=== PATIENT | female | born 1950 | race Caucasian/White ===

== ENCOUNTER 2024-07-02 11:25 | Inpatient (IN) | payer MEDICARE, BC, SELFPAY ==
[2024-07-02] VITALS (8 sets, daily range): BP systolic 108–125; BP diastolic 55–75; PULSE 59–74; RESP 14–16; TEMP 36.6–36.9; O2SAT 99–100; BMI 22.8
--- NOTE | ~2024-07-02 | XR_ITS ---
EXAMINATION: XR CHEST CLINICAL INFORMATION: Chest pressure, palpitations COMPARISON: None available. TECHNIQUE: 2 views of the chest were obtained. FINDINGS: The lungs are well-expanded. No focal consolidation. No pleural effusions or pneumothorax. The cardiac mediastinal silhouette is within normal limits. No acute osseous abnormality. Degenerative changes of the thoracic spine. XR/XR chest 2V IMPRESSION: No acute pulmonary disease.
--- NOTE | ~2024-07-02 | NM_ITS ---
EXERCISE MYOCARDIAL PERFUSION STUDY INDICATION: Chest pain TECHNIQUE: The patient was brought in for an exercise perfusion study on 07/04/2024. Patient performed exercise as per Marcus protocol and was injected 25 mCi of sestamibi once target heart rate was achieved. Images were obtained using the SPECT gamma camera interlaced with the gating device. Images were obtained in supine position. Resting perfusion study was performed on 07/03/2024. Patient was administered 25 mCi of sestamibi intravenously at rest. Images were then obtained in supine position. Images were processed with the software and compared side to side in short axis, horizontal long axis and vertical long axis views. Total DLP 60mGy-cm. FINDINGS: Raw images were reviewed. The stress perfusion study showed no significant perfusion abnormality. Both uncorrected as well as CT attenuation corrected images were reviewed. The gated study shows normal LV systolic function with calculated LVEF of 72%. LV cavity is normal in size. The gated study shows normal wall thickening and contraction of segments. Resting study shows no significant perfusion abnormality. Gating at rest reveals normal wall motion with ejection fraction at 60%. The findings are consistent with no clear reversible or fixed perfusion abnormality. NM/NM armida perf SPECT rest & str IMPRESSION: 1. Myocardial perfusion imaging study shows normal myocardial perfusion. 2. Gated LVEF is 72% during stress and 60% during rest. 3. Transient ischemic dilatation not present. EKG component of the test reported separately.
--- NOTE | 2024-07-02 11:29 | ECG_ITS ---
Test Reason : CP Blood Pressure : / mmHG Vent. Rate : 068 BPM Atrial Rate : 068 BPM P-R Int : 156 ms QRS Dur : 094 ms QT Int : 364 ms P-R-T Axes : 060 -12 034 degrees QTc Int : 387 ms Normal sinus rhythm Normal ECG No previous ECGs available Referred By: Daphnie Sam Electronically Signed By:GAIL BORGES
--- NOTE | 2024-07-02 11:51 | ED_ITS ---
HPI - Chest Pain General Chief Complaint: Chest Pain Stated Complaint: Chest palpitations, fatigued Time Seen by Provider: 07/02/24 11:29 Source: patient and RN notes reviewed Mode of arrival: ambulatory Limitations: no limitations History of Present Illness ED Provider: Daphnie Sam PA-C HPI narrative: This is a 74-year-old female, with a history of hyperlipidemia, hypertension, and thyroid disease on Synthroid, who presents emergency department with complaints of palpitations, fatigue, and chest pain. Patient states that she has had intermittent palpitations, and chest pressure over the last 5-6 months which typically occurred when she was active, which she attributed to deconditioning. She states that over the last day she has felt increased symptoms including chest pressure, and palpitations. She states that yesterday she as though she was having indigestion and gas so she took gavaston. States that her symptoms have been more consistent today. States that the chest pressure, palpitations, and SOB have worsened today, states that she was walking at a slight incline to a neighbors this afternoon. She states that she was endorsing some palpitations and chest pressure on with only walking short distances. She states that she also gets palpitations and chest pressure when she is walking upstairs. She denies any recent travel, surgeries, hospitalizations. MD complaint: chest pain Onset (ago): month(s) Timing of current episode: episodic Prior episodes: Yes Onset: during exertion Pain location: substernal, left chest and right chest Pain radiation: none Severity: moderate Quality: heaviness Relieving factors: rest Exacerbating factors: exertion Associated symptoms: dyspnea and palpitations Treatment prior to arrival: none Risk Factors Coronary artery disease risk factors: hyperlipidemia and hypertension Related Data On Oral Contraceptives: No Allergies Allergy/AdvReac Type Severity Reaction Status Date / Time No Known Allergies Allergy Verified 07/02/24 11:49 Review of Systems 2 Review of Systems: Yes all other systems are reviewed and are negative Constitutional: Constitutional: Reports as per [facility] Social History Social History Smoked in Last 30 Days: No Use of substances other than those prescribed or required for medical reasons: No Advance Directives: No Advance Directives Information Provided: Yes Do you have a plan to hurt others: No Plan Physical Exam 2 Vital Signs: Vital Signs: Last Vital Signs Temp 97.8 F 07/02/24 11:36 Pulse 59 07/02/24 16:00 Resp 16 07/02/24 16:00 BP 114/64 07/02/24 16:00 Pulse Ox 99 07/02/24 16:00 O2 Del Method Room Air 07/02/24 16:00 BMI result Body Mass Index 22.8 Const: General: cooperative, comfortable and no acute distress O rientation/consciousness: patient oriented x3 Limitations: no limitations HEENT: Head: Yes normal to inspection, Yes normocephalic and Yes atraumatic Ears: hearing grossly normal bilaterally General nose exam: Normal external nose present Face and sinus: Yes normal facial exam Mouth: Normal oral and palatal mucosa present, oropharynx normal and moist mucous membranes Throat: Yes posterior oropharynx normal Eyes: General: appearance normal, both eyes and all related structures E yelids: Yes eyelids normal Conjunctivae: conjunctivae normal Sclerae: s clerae normal Pupils: Equal, round and reactive pupils present EOM: EOMs intact bilaterally Neck: Neck: Yes normal visual inspection, Yes full ROM and Yes no lymphadenopathy Lymphatic: no lymphadenopathy noted Chest: Chest palpation & inspection: normal inspection of the chest Resp: Effort & Inspection: normal respiratory effort and able to speak in complete sentences Auscultation: clear to auscultation bilaterally, no crackles, no rales, no rhonchi and no wheezes Cardio: Rate: regular rate Rhythm: regular rhythm Heart sounds: S1 normal heart sound present and S2 normal heart sound present GI: Inspection: Yes normal to inspection Skin: General skin exam: no rashes or lesions noted Trauma: no lacerations or abrasions Wounds: no wounds Neuro: General: patient oriented x3 and moves all extremities Cranial nerves: Yes Equal, round and reactive pupils present Extrem: Other: No pitting edema noted bilaterally, no calf tenderness. General: Yes normal to inspection Right upper extremity: normal to inspection Left upper extremity: normal to inspection Right lower extremity: normal to inspection Left lower extremity: normal to inspection Course Reevaluation(s) Reevaluation #1: Second troponin returns, flat. Labs, EKG, chest x-ray, all normal. Given concerning story, heart score of 4, and he has renal equivalent type symptoms, I discussed case with Dr. Stahl. Dr. Stahl agrees that she would benefit from admit obs, patient is agreeable for this workup. Discussed case with hospitalist, Dr. Ramírez. Time: 17:19 Medical Decision Making Medical Decision Making [facility] Narrative: This is a 74-year-old female, with a history of thyroid disease, hypertension, and hyperlipidemia, who presents emergency department with palpitations, chest pressure and fatigue. She is currently asymptomatic at this time. She states that she has had ongoing symptoms for the last 5-6 months which she attributed to deconditioning. She states that her symptoms have been more consistent over the last 24 hours. She also endorses some shortness for breath after exertion. On arrival, patient is alert and oriented x4, vital signs within normal limits. No pitting edema noted bilaterally. Differential diagnoses include ACS, electrolyte derangement, thyroid storm, orthostatic hypotension, CHF - unlikely, pneumonia. Plan: Labs, EKG, chest x-ray, viral swabs Differential Diagnosis Differential Diagnoses: The differential diagnosis associated with the presentation includes See above Admission/Observation Consideration of admission/observation: Escalation of care including admission/observation considered Consult Healthcare Provider Management of the patient was discussed with: Hospitalist and Classification Inspector Dr. Favio Ramírez Lab Data [facility] Lab Attestation statement: I reviewed the patient's lab results. No leukocytosis, stable H&H, TSH within normal limits. Troponin flat. Urine does not appear to be infected. Viral swabs negative. 07/02/24 11:58 07/02/24 11:58 Labs: Lab Results 07/02/24 07/02/24 07/02/24 Range/Units 11:58 13:54 16:08 WBC 4.3 L (4.8-10.8) X10*3/uL RBC 3.68 L (4.20-5.50) X10*6/uL Hgb 12.5 (12.0-16.0) g/dl Hct 35.6 L (37.0-47.0) % MCV 96.7 (80.0-98.0) fL MCH 34.0 H (27.0-33.0) pg MCHC 35.1 H (31.0-35.0) g/dl RDW 12.3 (11.0-16.0) % Plt Count 251 (160-400) X10*3/uL MPV 10.3 (9.4-12.3) fL Immature Gran % (Auto) 0.2 (0.0-0.4) % Neut % (Auto) 62.9 (45-73) % Lymph % (Auto) 20.2 (20-40) % [place] % (Auto) 14.2 H (2-11) % Eos % (Auto) 1.6 (0-4) % Baso % (Auto) 0.9 (0-2) % Lymph # (Auto) 0.9 L (1.2-4.9) X10*3/uL [place] # (Auto) 0.6 (0.1-1.2) X10*3/uL Eos # (Auto) 0.1 (0.0-0.4) X10*3/uL Baso # (Auto) 0.0 (0.0-0.2) X10*3/uL Abs Immat Gran (auto) 0.01 (0.00-0.03) X10*3/uL Absolute Neuts (auto) 2.7 (2.0-8.3) x10*3/uL Absolute Nucleated RBC 0.000 (0.0-0.012) X10*3/uL Nucleated RBC % (auto) 0.0 (0.0-0.2) /100WBC PT 11.9 (11.1-13.3) SEC INR 1.0 (0.9-1.1) D-Dimer High Sensitivty 165 NG/ML Sodium 131 L (135-145) mmol/L Potassium 3.9 (3.3-5.1) mmol/L Chloride 97 (96-108) mmol/L Carbon Dioxide 26 (22-29) mmol/L Anion Gap 12 (12-20) BUN 14 (9-16) mg/dL Creatinine 0.83 (0.5-1.4) mg/dL Estim Creat Clear Calc 58.7 Estimated GFR > 60 Random Glucose 96 (60-115) mg/dL Calcium 9.5 (8.4-10.2) mg/dL Magnesium 2.0 (1.6-2.6) mg/dL Total Bilirubin 0.4 (0.0-1.0) mg/dL Direct Bilirubin 0.2 (0.0-0.5) mg/dL AST 30 (5-31) U/L ALT 23 (0-31) U/L Alkaline Phosphatase 54 (39-117) U/L Troponin I High Sens 4.2 4.9 (<3.5-17.0) ng/L B-Natriuretic Peptide 107 H (<100) pg/mL Total Protein 6.9 (6.5-8.0) g/dL Albumin 4.3 (3.5-5.0) g/dL TSH 0.79 (0.32-4.0) uIU/mL Urine Color Yellow Urine Appearance Clear Urine pH 7.0 (5.0-9.0) Ur Specific [place] <= 1.005 (1.005-1.025) Urine Protein Negative (Neg-Trace) mg/dL Urine Glucose (UA) Negative (Negative) mg/dL Urine Ketones Negative (Negative) mg/dL Urine Blood Trace H (Negative) Urine Nitrite Negative (Negative) Ur Leukocyte Esterase Negative (Negative) Urine RBC 3-5 H (0-2) /HPF Urine WBC 0-5 (0-5) /HPF Ur Squamous Epith Cells 0-2 (0-2) /HPF Urine Bacteria None Seen (None Seen) Hyaline Casts 0-2 (0-2) /LPF Ethyl Alcohol < 10 mg/dL Influenza Type A (PCR) NEGATIVE (Negative) Influenza Type B (PCR) NEGATIVE (Negative) RSV RNA Qual (PCR) NEGATIVE (Negative) SARS-CoV-2 RNA (RT-PCR) NEGATIVE (Negative) Independent Interpretation I performed an independent interpretation of an: EKG Interpretation: EKG normal sinus rhythm at a ventricular rate of 60 beats per minute, IN interval 156, QT QTC 364/387. No ST elevation or depression Radiology Impression Discussion of test interpretation with radiology: I have reviewed the radiologist's reading. Radiologist Impression: XR/XR chest 2V IMPRESSION: No acute pulmonary disease. Dictated By: Scotty Oglesby Independent Historian Clinical information obtained from an independent historian. History obtained from or confirmed by: Spouse Scores Heart Score History: -1- moderately suspicious ECG: -0- normal Age: -2- > or = 65 Risk factory: -1- 1 or 2 risk factors Troponin: -0- < or = normal limit Score: 4 Risk: 16.6% Critical Care Time Critical Care Time Critical Care Time: Yes Total Critical Care Time: 35 Attestation: I have personally provided critical care time exclusive of time spent on separately billable procedures. Time includes review of lab data, radiology results, discussion with consultants, and monitoring for potential decompensation. Intervention performed as documented. Discharge Plan Discharge Clinical Impression: Palpitations, Anginal equivalent Print Language: [place]
[2024-07-02 12:05] LABS: MANUAL DIFF FLAG NO
[2024-07-02 12:26] LABS: Prothrombin Time 11.9 SEC (11.1-13.3)
[2024-07-02 12:28] LABS: B Type Natriuretic Peptide 107 pg/mL (<100); Troponin-I High Sensitivity 4.2 ng/L (<3.5-17.0)
[2024-07-02 12:36] LABS: Alanine Aminotransferase 23 U/L (0-31); Albumin Level 4.3 g/dL (3.5-5.0); Alkaline Phosphatase 54 U/L (39-117); Anion Gap 12 (12-20); Aspartate Amino Transferase 30 U/L (5-31); Bilirubin Direct 0.2 mg/dL (0.0-0.5); Bilirubin Total 0.4 mg/dL (0.0-1.0); Blood Urea Nitrogen 14 mg/dL (9-16); Calcium 9.5 mg/dL (8.4-10.2); Carbon Dioxide 26 mmol/L (22-29); Chloride 97 mmol/L (96-108); Creatinine Clr Calc Pharmacy 58.7; Estimated Glomerular Filt Rate > 60; Ethanol < 10 mg/dL; Glucose Random 96 mg/dL (60-115); Potassium 3.9 mmol/L (3.3-5.1); Sodium 131 mmol/L (135-145); Total Protein 6.9 g/dL (6.5-8.0)
[2024-07-02 12:45] LABS: TSH reflex Free T4 0.79 uIU/mL (0.32-4.0)
[2024-07-02 12:49] LABS: Influenza A PCR NEGATIVE (Negative); Influenza B PCR NEGATIVE (Negative); Resp Syncy Virus RNA Qual PCR NEGATIVE (Negative); SARS COV2 PCR INHOUSE NEGATIVE (Negative)
[2024-07-02 13:27] LABS: Basophils Percent Auto 0.9 % (0-2); Eosinophils Absolute Auto 0.1 X10*3/uL (0.0-0.4); Eosinophils Percent Auto 1.6 % (0-4); Hematocrit 35.6 % (37.0-47.0); Hemoglobin 12.5 g/dl (12.0-16.0); Imm Gran Abs Auto 0.01 X10*3/uL (0.00-0.03); Imm Gran Pct Auto 0.2 % (0.0-0.4); Lymphocytes Absolute Auto 0.9 X10*3/uL (1.2-4.9); Lymphocytes Percent Auto 20.2 % (20-40); Mean Corpuscular HGB Conc 35.1 g/dl (31.0-35.0); Mean Corpuscular Volume 96.7 fL (80.0-98.0); Mean Platelet Volume 10.3 fL (9.4-12.3); Monocytes Absolute Auto 0.6 X10*3/uL (0.1-1.2); Monocytes Percent Auto 14.2 % (2-11); Neutrophils Absolute Auto 2.7 x10*3/uL (2.0-8.3); Neutrophils Percent Auto 62.9 % (45-73); Platelet Count 251 X10*3/uL (160-400); Red Blood Count 3.68 X10*6/uL (4.20-5.50); Red Cell Distribution Width 12.3 % (11.0-16.0); White Blood Count 4.3 X10*3/uL (4.8-10.8)
[2024-07-02 13:55] LABS: D Dimer High Sensitivity 165 NG/ML
[2024-07-02 14:01] LABS: Appearance Urine Clear; Color Urine Yellow; Glucose Urine UA Negative (Negative); Leukocyte Esterase Urine Negative (Negative); Nitrite Urine Negative (Negative); Specific Gravity - Urine <= 1.005 (1.005-1.025); UMIC TRIGGER UACC YES; Urine Blood Trace (Negative); Urine Ketones Negative (Negative); Urine Protein Negative (Neg-Trace)
[2024-07-02 14:05] LABS: Bacteria Urine None Seen (None Seen); Hyaline Casts Urine 0-2 /LPF (0-2); Squamous Epithelial Cell Urine 0-2 /HPF (0-2); WBC Urine 0-5 /HPF (0-5)
[2024-07-02 16:43] LABS: Troponin-I High Sensitivity 4.9 ng/L (<3.5-17.0)
--- NOTE | 2024-07-02 17:43 | P.HPHOSP_ITS ---
History of Present Illness Date of Service: 07/02/24 Chief Complaint: palpitations 74F PMH htn, hld, hypothyroid, presented with palpitations. Patient states that symptoms began day prior to presentation. On moderate exertion such as hiking on outside trail she started to feel chest heaviness with palpitations. Relieved by rest. On day of presentation, symptoms started with only mild exertion. Patient took her orthostatic vitals and found them to be positive. Orthostatics in ER were negative. Troponins were negative. EKG was unremarkable. Case discussed with Cardiology recommended observation for stress test. Review of Systems 2 Review of Systems: Yes all other systems are reviewed and are negative [facility] Medical History (Updated 07/02/24 @ 17:44 by Wild Ramírez MD) Adult onset hypothyroidism Social History Smoked in Last 30 Days: No Use of substances other than those prescribed or required for medical reasons: No Advance Directives: No Advance Directives Information Provided: Yes Do you have a plan to hurt others: No Plan Meds Allergies Allergy/AdvReac Type Severity Reaction Status Date / Time No Known Allergies Allergy Verified 07/02/24 11:49 Home Medications ?Medication ?Instructions ?Recorded ?Confirmed ?Last Taken ?Type acetaminophen 500 mg tablet 500 mg PO BID 07/02/24 07/02/24 07/01/24 History (Tylenol Extra Strength) acetaminophen 500 mg tablet 500 mg PO DAILY PRN Pain 07/02/24 07/02/24 Unknown History (Tylenol Extra Strength) atorvastatin 10 mg tablet 5 mg PO DAILY 07/02/24 07/02/24 07/01/24 History calcium carbonate 500 mg PO DAILY 07/02/24 07/02/24 07/01/24 History cholecalciferol (vitamin D3) 50 50 mcg PO DAILY 07/02/24 07/02/24 07/01/24 History mcg (2,000 unit) tablet (Vitamin D3) levothyroxine 112 mcg tablet 112 mcg PO DAILY 07/02/24 07/02/24 07/02/24 History (Synthroid) losartan 100 mg tablet 100 mg PO DAILY 07/02/24 07/02/24 07/01/24 History metronidazole 0.75 % topical cream 1 appl topical BID PRN Rash 08/14/24 08/14/24 Unknown History multivitamin 1 tab PO DAILY 07/02/24 07/02/24 07/01/24 History Physical Exam 2 Vital Signs and Narrative: Vital Signs: Last Vital Signs Temp 97.8 F 07/02/24 11:36 Pulse 59 07/02/24 16:00 Resp 16 07/02/24 16:00 BP 114/64 07/02/24 16:00 Pulse Ox 99 07/02/24 16:00 O2 Del Method Room Air 07/02/24 16:00 BMI result Body Mass Index 22.8 General: AO X 3, no acute distress Resp: CTA bilateral, no accessory muscles used CVS: S1,S2,RRR GI: soft, non tender, non distended Neuro: motor grossly intact, alert Psych: appropriate affect, appropriate insight Results Labs 07/02/24 11:58 07/02/24 11:58 Labs: Laboratory Results - last 24 hr 07/02/24 07/02/24 07/02/24 11:58 13:54 16:08 MCV 96.7 MCH 34.0 H MCHC 35.1 H RDW 12.3 Plt Count 251 MPV 10.3 Immature Gran % (Auto) 0.2 Neut % (Auto) 62.9 Lymph % (Auto) 20.2 [place] % (Auto) 14.2 H Eos % (Auto) 1.6 Baso % (Auto) 0.9 Lymph # (Auto) 0.9 L [place] # (Auto) 0.6 Eos # (Auto) 0.1 Baso # (Auto) 0.0 Abs Immat Gran (auto) 0.01 Absolute Neuts (auto) 2.7 Absolute Nucleated RBC 0.000 Nucleated RBC % (auto) 0.0 PT 11.9 INR 1.0 D-Dimer High Sensitivty 165 Anion Gap 12 Estim Creat Clear Calc 58.7 Estimated GFR > 60 Random Glucose 96 Calcium 9.5 Magnesium 2.0 Total Bilirubin 0.4 Direct Bilirubin 0.2 AST 30 ALT 23 Alkaline Phosphatase 54 Troponin I High Sens 4.2 4.9 B-Natriuretic Peptide 107 H Total Protein 6.9 Albumin 4.3 TSH 0.79 Urine Color Yellow Urine Appearance Clear Urine pH 7.0 Ur Specific [place] <= 1.005 Urine Protein Negative Urine Glucose (UA) Negative Urine Ketones Negative Urine Blood Trace H Urine Nitrite Negative Ur Leukocyte Esterase Negative Urine RBC 3-5 H Urine WBC 0-5 Ur Squamous Epith Cells 0-2 Urine Bacteria None Seen Hyaline Casts 0-2 Ethyl Alcohol < 10 Influenza Type A (PCR) NEGATIVE Influenza Type B (PCR) NEGATIVE RSV RNA Qual (PCR) NEGATIVE SARS-CoV-2 RNA (RT-PCR) NEGATIVE Imaging Radiologist's Impressions: Impressions Chest X-Ray 07/02/24 12:20 IMPRESSION: No acute pulmonary disease. Assessment and Plan (1) Palpitations: Status: Acute Plan 74F PMH htn, hld, hypothyroid, presented with palpitations Orthostatic hypotension from dehydration versus anginal equivalent Cardiology eval, stress test Monitor on tele Hypertension Continue losartan Hyperlipidemia Continue statin Hypothyroid Synthroid DVT prophylaxis with Lovenox Full Code Quality Stroke Does the patient have a stroke diagnosis?: No VTE Prior VTE?: No VTE Risk Level:: Medical - moderate - high VTE Device Contraindication: Treatment Not Indicated VTE Drug Contraindication: N/A - Med Ordered
--- NOTE | 2024-07-02 18:01 | PHA.MEDREC ---
Addendum entered by Pio Ravi 07/02/24 18:11: Med rec verified Original Note: Pharmacy Consult ? Medication Reconciliation Pharmacy has completed the medication reconciliation. Spoke to patient to confirm med list. Patient states she take Synthroid 112 mg daily, however there is no claim on file. call [facility] in [place] and the have no claim at all for synthroid. Will have pharmacist notify .
--- NOTE | 2024-07-02 19:40 | MHC.EDTECH ---
This tech took over care of patient at 1900,hourly rounds and vitals completed,patient ate 75% of dinner,patient ambulated to the bathroom with a steady gait,call escobedo in reach
--- NOTE | 2024-07-02 21:07 | PC.NURSE ---
Patient's bed switched to hosptial bed, PM care supplies offered, patient currently completing evening ADLs before going to sleep.
--- NOTE | 2024-07-02 21:44 | MHC.EDTECH ---
Patient ambulated to the bathroom,hourly rounds and vitals completed,call escobedo in reach
--- NOTE | 2024-07-02 22:07 | PC.NURSE ---
Patient initially did not want evening Tylenol, now has changed her mind, will undo and administer per mar.
[2024-07-02] MEDS: Acetaminophen 325 MG TABLET 650 MG PO (22:12)
[2024-07-03] VITALS (8 sets, daily range): BP systolic 108–146; BP diastolic 56–71; PULSE 58–69; RESP 14–22; TEMP 36.3–36.9; O2SAT 97–100
--- NOTE | 2024-07-03 00:45 | MHC.EDTECH ---
Hourly rounds and vitals completed,call escobedo in reach
[2024-07-03] MEDS: 0.9 % Sodium Chloride Flush 3 ML SYRINGE IVFLUSH ×2 (00:50→17:07)
--- NOTE | 2024-07-03 02:18 | MHC.EDTECH ---
Hourly rounds completed,patient ambulated to the bathroom with a steady gait,call escobedo in reach
--- NOTE | 2024-07-03 05:17 | MHC.EDTECH ---
Rounds and vitals completed,patient is resting quietly call escobedo in reach
[2024-07-03 05:31] LABS: Hematocrit 32.5 % (37.0-47.0); Hemoglobin 11.6 g/dl (12.0-16.0); Mean Corpuscular HGB Conc 35.7 g/dl (31.0-35.0); Mean Corpuscular Hemoglobin 34.5 pg (27.0-33.0); Mean Corpuscular Volume 96.7 fL (80.0-98.0); Mean Platelet Volume 9.4 fL (9.4-12.3); Platelet Count 200 X10*3/uL (160-400); Red Blood Count 3.36 X10*6/uL (4.20-5.50); Red Cell Distribution Width 12.4 % (11.0-16.0); White Blood Count 2.8 X10*3/uL (4.8-10.8)
[2024-07-03 05:45] LABS: Anion Gap 14 (12-20); Blood Urea Nitrogen 14 mg/dL (9-16); Calcium 9.3 mg/dL (8.4-10.2); Carbon Dioxide 22 mmol/L (22-29); Chloride 103 mmol/L (96-108); Creatinine Clr Calc Pharmacy 61.6; Estimated Glomerular Filt Rate > 60; Glucose Fasting 89 mg/dL (60-99); Potassium 4.1 mmol/L (3.3-5.1); Sodium 135 mmol/L (135-145)
[2024-07-03 05:52] LABS: Troponin-I High Sensitivity 4.1 ng/L (<3.5-17.0)
[2024-07-03] MEDS: Levothyroxine Sodium 112 MCG TABLET PO (05:57)
--- NOTE | 2024-07-03 05:57 | PC.NURSE ---
patient given morning synthroid and at this time denies chest pain or any associated symptoms. will continue to monitor
[2024-07-03] MEDS: Acetaminophen 325 MG TABLET 650 MG PO ×2 (07:29→22:00)
--- NOTE | 2024-07-03 07:36 | PC.NURSE ---
patient sitting up in bed, respirations equal and unlabored, skin dry and intact. patient is alert and oriented x3. patient ate breakfast this morning. VSS, patient in normal sinus rhythm on the tele monitor
--- NOTE | 2024-07-03 09:23 | MHC.CM.PN ---
CM met with Patient at bedside and addressed JOAQUIN with her, providing Patient with the original and a copy has been placed on the chart. Patient lives in a house with her /HCP and she is functionally independent. Home/self care is the goal and CM has initiated and will follow for dc planning. PCP/IRRIGATION LABORER is Jessica Reyna. will transport to home.
--- NOTE | 2024-07-03 09:35 | CA_ITS ---
Transthoracic Echocardiogram Amended Patient (Last, First, Middle): Jory Augustin, Gender: Female Date of : 1950 Age: 74 Procedure Date: 07/03/2024 Procedure Type: Transthoracic Echocardiogram Location: [facility] [place] Height: 170.18 cm Weight: 65.77 kg BSA: 1.76 m2 Heart Rate: bpm BP: 129 / 63 mmHg Meter/Relay Technician: TO Referring MD: Roni Stahl MD Symptoms: Chest pain Study Quality: Adequate ECG Rhythm: Sinus Conclusions: - The left ventricular systolic function is normal. The calculated ejection fraction is 63% by biplane method. - There is mild tricuspid valve regurgitation. Findings Left Ventricle Normal left ventricular cavity size. There is normal left ventricular wall thickness. The left ventricular systolic function is normal. The calculated ejection fraction is 63% by biplane method. There is no evidence of regional wall motion abnormalities. Diastolic function is normal for age. Right Ventricle Mildly increased right ventricular cavity size. There is normal right ventricular systolic function. Atria The left atrium is mildly dilated. The right atrium is normal in size. Aortic Valve There is a normal trileaflet aortic valve. There is mild calcification of the aortic valve. There is no aortic valve stenosis. There is no aortic valve regurgitation. Mitral Valve There is mild anterior mitral leaflet thickening. There is trace mitral valve regurgitation. There is no mitral valve stenosis. Pulmonic Valve The pulmonic valve is likely normal. Tricuspid Valve Normal tricuspid valve structure. There is mild tricuspid valve regurgitation. There is no evidence of pulmonary hypertension. Great Vessels The asc aorta and aortic arch are normal in size. Venous The inferior vena cava is mildly dilated and collapses greater than 50% with inspiration. Pericardium/Pleural There is no evidence of pericardial effusion. Prior Study Comparison No prior study available for comparison. Measurements 2D Linear Measurements IVSd: 0.93 0.6-0.9/0.6-1.0 cm LVIDd: 4.49 3.9-5.3/4.2-5.9 cm LVIDd Index: 2.55 2.4-3.2/2.2-3.1 cm/m2 LVIDs: 2.95 2.0-3.6 cm LVPWd: 0.71 0.7-1.1 cm LA Diam: 3.30 2.7-3.8/3.0-4.0 cm LAIDs Index: 1.88 1.5-2.3 cm/m2 LV Mass: 145.07 67-162/88-224 g LV Mass Index: 82.43 43-95/49-115 g/m2 LVOT Diam: 2.10 3.0+(-)1.3 cm 2D Volumes LA Vol: 37.60 2D Systolic Function EF 4C: 62.60 >55% EF 2C: 65.10 >55% EF BiP: 62.80 >55% Mitral Valve MV Pk E: 0.61 MV PK A: 0.51 MV Decel Time: 250.00 E/A: 1.20 E'Lateral: 12.30 E'Medial: 6.96 E/E' Med: 8.80 E/E' Lat: 5.00 PHT: 73.00 MVA PHT: 3.01 Decel [place]: 2.45 Aortic Valve AoV Pk [place]: 1.49 AoV Mn [place]: 0.98 AoV VTI: 0.36 AoV Pk Grad: 9.00 Aov Mn Grad: 4.00 AUDI Cont.VTI: 3.00 LVOT LVOT Pk [place]: 1.21 LVOT Mn [place]: 0.85 LVOT VTI: 0.31 LVOT Pk Grad: 6.00 LVOT Mn Grad: 3.00 LVOT Diam: 2.10 LVOT Area: 3.46 Diastolic Function MV Pk E: 0.61 MV Pk A: 0.51 E/A: 1.20 E'Medial: 6.96 E/E' Med: 8.80 E' Laterial: 12.30 E/E' Lat: 5.00 Right Ventricle TAPSE (mm): 2.70 TVS' [place]: 10.00 Tricuspid Valve TR Pk [place]: 2.36 TR Pk Grad: 22.00 RA Press: 8.00 RVSP: 30.00 Great Vessels Aorta Sinus of Valsalva: 3.29 2.0-3.[address] [place]: 2.63 1.7-3.4 cm Ao Asc: 3.70 2.1-3.4 cm Ao Arch: 3.20 Updated in Other Vendor System with Status of Final Roni Stahl MD electronically signed on 07/04/2024 11:44:07 AM with status of Final
--- NOTE | 2024-07-03 10:12 | P.CONCA_ITS ---
History of Present Illness History of Present Illness Date of Service: 07/03/24 Chief complaint: Palpitations Narrative: This is a cardiology consultation regarding chest discomfort. She states that over the last several months, she has been having off and on symptoms. When she is walking on trails or going up inclines, she has been noticing some chest pressure. This happens sometimes but not always. She also feels short of breath and possibly some sensations of palpitations as well the same time. She has not been evaluated for coronary disease in the past. She is presenting with this symptom complex for further evaluation. There is a concern for possible anginal equivalent and hence she has been hospitalized for further care. So far, there is no evidence of any acute coronary syndrome. There is no prior history of coronary disease or myocardial infarction or cardiomyopathy. She is currently feeling well. Review of Systems 2 Review of Systems: Yes all other systems are reviewed and are negative Constitutional: Constitutional: Reports as per HPI and Reports no additional constitutional complaints Eyes: Eyes: Reports as per HPI and Denies no additional eye complaints ENT: Denies system reviewed and no additional complaints, except as documented and Reports as per HPI Cardiovascular: Cardiovascular: Reports as per HPI, Reports no additional cardiovascular complaints, Denies acrocyanosis, Denies cool extremities, Reports chest pain, Denies leg edema, Denies lightheadedness, Reports palpitations and Reports dyspnea Respiratory: Respiratory: Reports as per HPI, Denies no additional respiratory complaints and Reports dyspnea Gastrointestinal: Gastrointestinal: Reports as per HPI and Denies no additional gastrointestinal complaints Genitourinary: Genitourinary: Reports as per HPI Musculoskeletal: Musculoskeletal: Reports no additional musculoskeletal complaints and Reports as per HPI Integumentary/Breasts: Skin/Breast: Reports system reviewed and no additional complaints, except as docu Neurologic: Reports system reviewed and no additional complaints, except as documented and Reports as per HPI Psychiatric: Psychiatric: Reports no additional psychiatric complaints and Reports as per HPI Endocrine: Endocrine: Reports no additional endocrine complaints, Reports as per HPI and Reports palpitations Hematologic/Lymphatic: Hematologic/Lymphatic: Reports no additional hematologic/lymphatic complaints and Reports as per HPI Allergic/Immunologic: Allergic/Immunologic: Reports no additional allergic/immunologic complaints and Reports as per HPI [facility] Past Medical History Medical History (Updated 07/03/24 @ 10:15 by Roni Stahl MD) Adult onset hypothyroidism Family History Family History Unknown No problems noted. Pertinent family history: Details are unclear. Social History Social History Patient Tobacco Use Status: Never used Tobacco service: No Meds Allergies Allergy/AdvReac Type Severity Reaction Status Date / Time No Known Allergies Allergy Verified 07/02/24 11:49 Active Medications: Current Medications Acetaminophen (Acetaminophen 325 Mg Tablet) 650 mg PO Q6H PRN PRN Reason: Pain, Mild (Pain Scale 1-3), fever or headache Last Admin: 07/03/24 07:29 Dose: 650 mg Acetaminophen (Acetaminophen 325 Mg Tablet) 650 mg PO BID [facility] Last Admin: 07/02/24 22:12 Dose: 650 mg Atorvastatin Calcium (Atorvastatin Calcium 10 Mg Tablet) 5 mg PO DAILY [facility] Calcium Carbonate (Calcium Carbonate 750 Mg Tab.Chew) 750 mg PO Q4H PRN PRN Reason: Heartburn Calcium Carbonate (Calcium Oyster Shell Elemental 500 Mg Tablet) 500 mg PO DAILY [facility] Enoxaparin Sodium (Enoxaparin Sodium 40 Mg/0.4 Ml Syringe) 40 mg SUBCUT Q24H [facility] Levothyroxine Sodium (Levothyroxine Sodium 112 Mcg Tablet) 112 mcg PO DAILY@0600 [facility] Last Admin: 07/03/24 05:57 Dose: 112 mcg Losartan Potassium (Losartan Potassium 50 Mg Tablet) 100 mg PO DAILY [facility]; Protocol Magnesium Hydroxide (Milk Of Magnesia 30 Ml Oral.Susp) 30 ml PO DAILY PRN PRN Reason: Constipation Melatonin (Melatonin 3 Mg Tablet) 6 mg PO BEDTIME PRN PRN Reason: Insomnia Non-Formulary Medication (Metronidazole) 1 appl TOPICAL BID PRN PRN Reason: Rash Sodium Chloride (0.9 % Sodium Chloride Flush 3 Ml Syringe) 3 ml IVFLUSH QSHIFT [facility] Last Admin: 07/03/24 07:31 Dose: Not Given Vitamin D (Cholecalciferol (Vitamin D3) 25 Mcg Tablet) 50 mcg PO DAILY [facility] Home Medications ?Medication ?Instructions ?Recorded ?Confirmed ?Last Taken ?Type acetaminophen 500 mg tablet 500 mg PO BID 07/02/24 07/02/24 07/01/24 History (Tylenol Extra Strength) acetaminophen 500 mg tablet 500 mg PO DAILY PRN Pain 07/02/24 07/02/24 Unknown History (Tylenol Extra Strength) atorvastatin 10 mg tablet 5 mg PO DAILY 07/02/24 07/02/24 07/01/24 History calcium carbonate 500 mg PO DAILY 07/02/24 07/02/24 07/01/24 History cholecalciferol (vitamin D3) 50 50 mcg PO DAILY 07/02/24 07/02/24 07/01/24 History mcg (2,000 unit) tablet (Vitamin D3) levothyroxine 112 mcg tablet 112 mcg PO DAILY 07/02/24 07/02/24 07/02/24 History (Synthroid) losartan 100 mg tablet 100 mg PO DAILY 07/02/24 07/02/24 07/01/24 History metronidazole 0.75 % topical cream 1 appl topical BID PRN Rash 07/02/24 07/02/24 Unknown History multivitamin 1 tab PO DAILY 07/02/24 07/02/24 07/01/24 History Physical Exam 2 Vital Signs: Vital Signs: Last Vital Signs Temp 97.8 F 07/03/24 07:27 Pulse 69 07/03/24 07:27 Resp 14 07/03/24 07:27 BP 129/63 07/03/24 07:27 Pulse Ox 100 07/03/24 07:27 O2 Del Method Room Air 07/03/24 07:27 BMI result Body Mass Index 22.8 Const: General: comfortable and no acute distress O rientation/consciousness: patient oriented x3 HEENT: Other: Unremarkable Head: Yes normal to inspection Neck: Neck: Yes normal visual inspection Chest: Chest palpation & inspection: normal inspection of the chest Resp: Auscultation: clear to auscultation bilaterally Cardio: Palpation: normal PMI Heart sounds: S1 normal heart sound present, S2 normal heart sound present, no gallops, Murmur heart sound present systolic III/ and at the right sternal border and no rubs GI: Palpation (GI): Soft to palpation Back/Spine/Pelvis: Other: unremarkable Skin: General skin exam: no rashes or lesions noted Neuro: General: patient oriented x3 Extrem: General: Yes normal to inspection Psych: Mental Status: mental status grossly normal Objective Labs and Meds 07/03/24 05:26 07/03/24 05:26 Lab results: Laboratory Results - last 24 hr 07/02/24 07/02/24 07/02/24 11:58 13:54 16:08 WBC 4.3 L RBC 3.68 L Hgb 12.5 Hct 35.6 L MCV 96.7 MCH 34.0 H MCHC 35.1 H RDW 12.3 Plt Count 251 MPV 10.3 Immature Gran % (Auto) 0.2 Neut % (Auto) 62.9 Lymph % (Auto) 20.2 [place] % (Auto) 14.2 H Eos % (Auto) 1.6 Baso % (Auto) 0.9 Lymph # (Auto) 0.9 L [place] # (Auto) 0.6 Eos # (Auto) 0.1 Baso # (Auto) 0.0 Abs Immat Gran (auto) 0.01 Absolute Neuts (auto) 2.7 Absolute Nucleated RBC 0.000 Nucleated RBC % (auto) 0.0 PT 11.9 INR 1.0 D-Dimer High Sensitivty 165 Sodium 131 L Potassium 3.9 Chloride 97 Carbon Dioxide 26 Anion Gap 12 BUN 14 Creatinine 0.83 Estim Creat Clear Calc 58.7 Estimated GFR > 60 Random Glucose 96 Fasting Glucose Calcium 9.5 Magnesium 2.0 Total Bilirubin 0.4 Direct Bilirubin 0.2 AST 30 ALT 23 Alkaline Phosphatase 54 Troponin I High Sens 4.2 4.9 B-Natriuretic Peptide 107 H Total Protein 6.9 Albumin 4.3 TSH 0.79 Urine Color Yellow Urine Appearance Clear Urine pH 7.0 Ur Specific [place] <= 1.005 Urine Protein Negative Urine Glucose (UA) Negative Urine Ketones Negative Urine Blood Trace H Urine Nitrite Negative Ur Leukocyte Esterase Negative Urine RBC 3-5 H Urine WBC 0-5 Ur Squamous Epith Cells 0-2 Urine Bacteria None Seen Hyaline Casts 0-2 Ethyl Alcohol < 10 Influenza Type A (PCR) NEGATIVE Influenza Type B (PCR) NEGATIVE RSV RNA Qual (PCR) NEGATIVE SARS-CoV-2 RNA (RT-PCR) NEGATIVE 07/03/24 05:26 WBC 2.8 L RBC 3.36 L Hgb 11.6 L Hct 32.5 L MCV 96.7 MCH 34.5 H MCHC 35.7 H RDW 12.4 Plt Count 200 MPV 9.4 Immature Gran % (Auto) Neut % (Auto) Lymph % (Auto) [place] % (Auto) Eos % (Auto) Baso % (Auto) Lymph # (Auto) [place] # (Auto) Eos # (Auto) Baso # (Auto) Abs Immat Gran (auto) Absolute Neuts (auto) Absolute Nucleated RBC 0.000 Nucleated RBC % (auto) 0.0 PT INR D-Dimer High Sensitivty Sodium 135 Potassium 4.1 Chloride 103 Carbon Dioxide 22 Anion Gap 14 BUN 14 Creatinine 0.79 Estim Creat Clear Calc 61.6 Estimated GFR > 60 Random Glucose Fasting Glucose 89 Calcium 9.3 Magnesium Total Bilirubin Direct Bilirubin AST ALT Alkaline Phosphatase Troponin I High Sens 4.1 B-Natriuretic Peptide Total Protein Albumin TSH Urine Color Urine Appearance Urine pH Ur Specific [place] Urine Protein Urine Glucose (UA) Urine Ketones Urine Blood Urine Nitrite Ur Leukocyte Esterase Urine RBC Urine WBC Ur Squamous Epith Cells Urine Bacteria Hyaline Casts Ethyl Alcohol Influenza Type A (PCR) Influenza Type B (PCR) RSV RNA Qual (PCR) SARS-CoV-2 RNA (RT-PCR) ECG Interpretation: EKG with underlying sinus rhythm at 68/Min; no significant ST-T changes and otherwise unremarkable. Normal HI and corrected QT. Imaging Radiologist's impression: Impressions Chest X-Ray 07/02/24 12:20 IMPRESSION: No acute pulmonary disease. Assessment and Plan (1) Precordial chest pain: Status: Acute Plan Baseline EKG is unremarkable. Unremarkable high sensitivity troponins. Cardiac BNP is slightly elevated at 107. On exam, aortic valve murmur. Will start with an echocardiogram for cardiac function, aortic valve assessment and any wall motion findings. Based on this, plan stress testing. Procedures Date of Service Date of Service: 07/03/24
[2024-07-03] MEDS: Losartan Potassium 50 MG TABLET 100 MG PO (10:17)
[2024-07-03] MEDS: Atorvastatin Calcium 10 MG TABLET 5 MG PO (10:17)
[2024-07-03] MEDS: Calcium Oyster Shell Elemental 500 MG TABLET PO (10:18)
[2024-07-03] MEDS: Cholecalciferol (Vitamin D3) 25 MCG TABLET 50 MCG PO (10:18)
[2024-07-03] MEDS: Enoxaparin Sodium 40 MG/0.4 ML SYRINGE SUBCUT (10:19)
--- NOTE | 2024-07-03 11:22 | HO.PM.IMPN ---
Subjective Subjective Date of Service: 07/03/24 Interval History: no sympotoms at rest Physical Exam Vital Signs: Vital Signs: Last Vital Signs Temp 97.9 F 07/03/24 11:04 Pulse 61 07/03/24 11:04 Resp 20 07/03/24 11:04 BP 130/61 07/03/24 11:04 Pulse Ox 98 07/03/24 11:04 O2 Del Method Room Air 07/03/24 11:04 BMI result Body Mass Index 22.8 General: AO X 3, no acute distress Resp: CTA bilateral, no accessory muscles used CVS: S1,S2,RRR GI: soft, non tender, non distended Neuro: motor grossly intact, alert Psych: appropriate affect, appropriate insight Objective Data Active Medications Acetaminophen (Acetaminophen 325 Mg Tablet) 650 mg PO Q6H PRN PRN Reason: Pain, Mild (Pain Scale 1-3), fever or headache Last Admin: 07/03/24 07:29 Dose: 650 mg Documented By: JAMA Acetaminophen (Acetaminophen 325 Mg Tablet) 650 mg PO BID [facility] Last Admin: 07/03/24 10:18 Dose: Not Given Documented By: GABY Non-Admin Reason: PT REFUSED; RECIEVED PRN Atorvastatin Calcium (Atorvastatin Calcium 10 Mg Tablet) 5 mg PO DAILY [facility] Last Admin: 07/03/24 10:17 Dose: 5 mg Documented By: GABY Calcium Carbonate (Calcium Carbonate 750 Mg Tab.Chew) 750 mg PO Q4H PRN PRN Reason: Heartburn Calcium Carbonate (Calcium Oyster Shell Elemental 500 Mg Tablet) 500 mg PO DAILY [facility] Last Admin: 07/03/24 10:18 Dose: 500 mg Documented By: GABY Enoxaparin Sodium (Enoxaparin Sodium 40 Mg/0.4 Ml Syringe) 40 mg SUBCUT Q24H [facility] Last Admin: 07/03/24 10:19 Dose: 40 mg Documented By: GABY Levothyroxine Sodium (Levothyroxine Sodium 112 Mcg Tablet) 112 mcg PO DAILY@0600 [facility] Last Admin: 07/03/24 05:57 Dose: 112 mcg Documented By: AMINAH Losartan Potassium (Losartan Potassium 50 Mg Tablet) 100 mg PO DAILY [facility]; Protocol Last Admin: 07/03/24 10:17 Dose: 100 mg Documented By: GABY Magnesium Hydroxide (Milk Of Magnesia 30 Ml Oral.Susp) 30 ml PO DAILY PRN PRN Reason: Constipation Melatonin (Melatonin 3 Mg Tablet) 6 mg PO BEDTIME PRN PRN Reason: Insomnia Non-Formulary Medication (Metronidazole) 1 appl TOPICAL BID PRN PRN Reason: Rash Sodium Chloride (0.9 % Sodium Chloride Flush 3 Ml Syringe) 3 ml IVFLUSH QSHIFT [facility] Last Admin: 07/03/24 07:31 Dose: Not Given Documented By: ALEXXC Non-Admin Reason: See Note Vitamin D (Cholecalciferol (Vitamin D3) 25 Mcg Tablet) 50 mcg PO DAILY [facility] Last Admin: 07/03/24 10:18 Dose: 50 mcg Documented By: GABY Labs 07/03/24 05:26 07/03/24 05:26 Labs: Laboratory Results - last 24 hr 07/02/24 07/02/24 07/02/24 11:58 13:54 16:08 MCV 96.7 MCH 34.0 H MCHC 35.1 H RDW 12.3 Plt Count 251 MPV 10.3 Immature Gran % (Auto) 0.2 Neut % (Auto) 62.9 Lymph % (Auto) 20.2 [place] % (Auto) 14.2 H Eos % (Auto) 1.6 Baso % (Auto) 0.9 Lymph # (Auto) 0.9 L [place] # (Auto) 0.6 Eos # (Auto) 0.1 Baso # (Auto) 0.0 Abs Immat Gran (auto) 0.01 Absolute Neuts (auto) 2.7 Absolute Nucleated RBC 0.000 Nucleated RBC % (auto) 0.0 PT 11.9 INR 1.0 D-Dimer High Sensitivty 165 Anion Gap 12 Estim Creat Clear Calc 58.7 Estimated GFR > 60 Random Glucose 96 Fasting Glucose Calcium 9.5 Magnesium 2.0 Total Bilirubin 0.4 Direct Bilirubin 0.2 AST 30 ALT 23 Alkaline Phosphatase 54 Troponin I High Sens 4.2 4.9 B-Natriuretic Peptide 107 H Total Protein 6.9 Albumin 4.3 TSH 0.79 Urine Color Yellow Urine Appearance Clear Urine pH 7.0 Ur Specific [place] <= 1.005 Urine Protein Negative Urine Glucose (UA) Negative Urine Ketones Negative Urine Blood Trace H Urine Nitrite Negative Ur Leukocyte Esterase Negative Urine RBC 3-5 H Urine WBC 0-5 Ur Squamous Epith Cells 0-2 Urine Bacteria None Seen Hyaline Casts 0-2 Ethyl Alcohol < 10 Influenza Type A (PCR) NEGATIVE Influenza Type B (PCR) NEGATIVE RSV RNA Qual (PCR) NEGATIVE SARS-CoV-2 RNA (RT-PCR) NEGATIVE 07/03/24 05:26 MCV 96.7 MCH 34.5 H MCHC 35.7 H RDW 12.4 Plt Count 200 MPV 9.4 Immature Gran % (Auto) Neut % (Auto) Lymph % (Auto) [place] % (Auto) Eos % (Auto) Baso % (Auto) Lymph # (Auto) [place] # (Auto) Eos # (Auto) Baso # (Auto) Abs Immat Gran (auto) Absolute Neuts (auto) Absolute Nucleated RBC 0.000 Nucleated RBC % (auto) 0.0 PT INR D-Dimer High Sensitivty Anion Gap 14 Estim Creat Clear Calc 61.6 Estimated GFR > 60 Random Glucose Fasting Glucose 89 Calcium 9.3 Magnesium Total Bilirubin Direct Bilirubin AST ALT Alkaline Phosphatase Troponin I High Sens 4.1 B-Natriuretic Peptide Total Protein Albumin TSH Urine Color Urine Appearance Urine pH Ur Specific [place] Urine Protein Urine Glucose (UA) Urine Ketones Urine Blood Urine Nitrite Ur Leukocyte Esterase Urine RBC Urine WBC Ur Squamous Epith Cells Urine Bacteria Hyaline Casts Ethyl Alcohol Influenza Type A (PCR) Influenza Type B (PCR) RSV RNA Qual (PCR) SARS-CoV-2 RNA (RT-PCR) Assessment and Plan (1) Precordial chest pain: Status: Acute Plan 74F PMH htn, hld, hypothyroid, presented with palpitations Orthostatic hypotension from dehydration versus anginal equivalent Cardiology appreciated, plan for echo, then possible stress test Monitor on tele Hypertension Continue losartan Hyperlipidemia Continue statin Hypothyroid Synthroid DVT prophylaxis with Lovenox Full Code reason for continued hospitalization:cardiac work up ongoing Quality Stroke Does the patient have a stroke diagnosis?: No VTE Prior VTE?: No VTE Risk Level:: Medical - moderate - high VTE Device Contraindication: Treatment Not Indicated VTE Drug Contraindication: N/A - Med Ordered
--- NOTE | 2024-07-03 11:24 | CA_ITS ---
Acquisition Time: 2024-07-04 07:48:39 Total Exercise Time: 00:05:31 Test Indications: Dyspnea Medications: SEE EMAR Protocol: ANAND Max HR: 129 BPM 87% of Pred: 147 BPM Max BP: 154/076 mmHG Max Work Load: 7.0 METS Exercise stress test exercise 5 min 31 sec of Anand protocol 87% MPHR, with 5/10 chest pressure, with mild SOB, without arrhhythmias, with normotensive response to exercise, without EKG changes , Chest pressure resolved by 2 minutes recovery. Nuclear images pending. Test reviewed with Dr Stahl. Referred By: Roni Stahl Overread By: Grace Kelly
[2024-07-04] MEDS: 0.9 % Sodium Chloride Flush 3 ML SYRINGE IVFLUSH (00:38)
[2024-07-04 03:37] VITALS: BP 131/60; PULSE 59; RESP 20; TEMP 36.4; O2SAT 98
[2024-07-04] MEDS: Levothyroxine Sodium 112 MCG TABLET PO (06:00)
[2024-07-04 07:40] VITALS: BP 118/81; PULSE 75; RESP 19; TEMP 36.4; O2SAT 100
[2024-07-04] MEDS: Atorvastatin Calcium 10 MG TABLET 5 MG PO (09:42)
[2024-07-04] MEDS: Calcium Oyster Shell Elemental 500 MG TABLET PO (09:42)
[2024-07-04] MEDS: Cholecalciferol (Vitamin D3) 25 MCG TABLET 50 MCG PO (09:43)
[2024-07-04] MEDS: Acetaminophen 325 MG TABLET 650 MG PO (09:43)
--- NOTE | 2024-07-04 09:45 | PM.PNCARD ---
Subjective Subjective Date of Service: 07/04/24 Interval history: seen and examined. She states she feels fine. No specific complaints. Review of Systems Review of Systems Yes all other systems are reviewed and are negative Constitutional: Reports as per HPI and Reports no additional constitutional complaints Eyes: Reports as per HPI and Denies no additional eye complaints Denies system reviewed and no additional complaints, except as documented and Reports as per HPI Cardiovascular: Reports as per HPI, Reports no additional cardiovascular complaints, Denies acrocyanosis, Denies cool extremities, Denies chest pain, Denies leg edema, Denies lightheadedness, Denies palpitations and Denies dyspnea Respiratory: Reports as per HPI, Denies no additional respiratory complaints and Denies dyspnea Gastrointestinal: Reports as per HPI and Denies no additional gastrointestinal complaints Genitourinary: Reports as per HPI Musculoskeletal: Reports no additional musculoskeletal complaints and Reports as per HPI Skin/Breast: Reports system reviewed and no additional complaints, except as docu Reports system reviewed and no additional complaints, except as documented and Reports as per HPI Psychiatric: Reports no additional psychiatric complaints and Reports as per HPI Endocrine: Reports no additional endocrine complaints, Reports as per HPI and Denies palpitations Hematologic/Lymphatic: Reports no additional hematologic/lymphatic complaints and Reports as per HPI Allergic/Immunologic: Reports no additional allergic/immunologic complaints and Reports as per HPI Physical Exam Vital Signs: Last Vital Signs Temp 97.6 F 07/04/24 07:40 Pulse 75 07/04/24 07:40 Resp 19 07/04/24 07:40 BP 118/81 07/04/24 07:40 Pulse Ox 100 07/04/24 07:40 O2 Del Method Room Air 07/04/24 07:40 BMI result Body Mass Index 22.8 Const General: comfortable and no acute distress Orientation/consciousness: patient oriented x3 HEENT Other: Unremarkable Head: Yes normal to inspection Neck Neck: Yes normal visual inspection Chest Chest palpation & inspection: normal inspection of the chest Resp Auscultation: clear to auscultation bilaterally Cardio Palpation: normal PMI Heart sounds: S1 normal heart sound present, S2 normal heart sound present, no gallops, Murmur heart sound present systolic III/ and at the right sternal border and no rubs GI Palpation (GI): Soft to palpation Back/Spine/Pelvis Other: unremarkable Skin General skin exam: no rashes or lesions noted Neuro General: patient oriented x3 Extrem General: Yes normal to inspection Psych Mental Status: mental status grossly normal Objective Labs and Meds 07/03/24 05:26 07/03/24 05:26 Progress Note: A&P Assessment and plan (1) Precordial chest pain: Status: Acute Plan In the stress test, she was able to reach 7 Mets; reported chest pressure but patient denies it when I ask her; subtle ST-T changes but nothing profound. In the perfusion imaging, no clear ischemic findings either. Echocardiogram shows preserved LVEF, no wall motion abnormalities and mild tricuspid regurgitation but otherwise unremarkable. Overall, no clear cardiac etiology for her symptoms. Consider coronary CTA as an outpatient. Discussed with patient and significant other. Time Spent With Patient Time: Total time managing care of this patient today ____ minutes. Progress Note: Quality Stroke Does the patient have a stroke diagnosis?: No Procedures Date of Service Date of Service: 07/04/24
--- NOTE | 2024-07-04 10:27 | MHC.CM.PN ---
CM met with Patient and her at bedside. Patient has been changed to INPATIENT and IMM was addressed with Patient (original was given to her and a copy has been placed on the chart).
--- NOTE | 2024-07-04 11:19 | P.DS_ITS ---
DS: Providers Provider Date of Service: 07/04/24 Date of admission: 07/03/24 17:57 Date of discharge: 07/04/24 Primary care physician: Jessica Reyna NP Consults: 07/02/24 17:40 Consult to Cardiology Routine Consulting Provider: [facility] Reason for consultation: palpitations Has provider been notified: Yes DS: Diagnosis Discharge Diagnosis (1) Precordial chest pain: Status: Acute DS: Summary Hospital Course Hospital Course: from initial hpi: 74F PMH htn, hld, hypothyroid, presented with palpitations. Patient states that symptoms began day prior to presentation. On moderate exertion such as hiking on outside trail she started to feel chest heaviness with palpitations. Relieved by rest. On day of presentation, symptoms started with only mild exertion. Patient took her orthostatic vitals and found them to be positive. Orthostatics in ER were negative. Troponins were negative. EKG was unremarkable. Case discussed with Cardiology recommended observation for stress test. hospital course: Patient was admitted for chest discomfort/palpitations. Troponins were negative, echo was unremarkable. Stress test was unremarkable. Patient will be discharged home and follow up with Cardiology as outpatient. For hypertension was continued on losartan. For hyperlipidemia is continue statin. For hypothyroidism was continued on Synthroid. Time Attestation Discharge Coordination Time (in mins): 35 Quality: Safe Use of Opioids Does Pt have an Active Cancer Diagnosis on the Problem List?: No Quality: Stroke Does the patient have a stroke diagnosis?: No Physical Exam Vital Signs: Vital Signs: Last Vital Signs Temp 97.6 F 07/04/24 07:40 Pulse 75 07/04/24 07:40 Resp 19 07/04/24 07:40 BP 118/81 07/04/24 07:40 Pulse Ox 100 07/04/24 07:40 O2 Del Method Room Air 07/04/24 07:40 BMI result Body Mass Index 22.8 General: AO X 3, no acute distress Resp: CTA bilateral, no accessory muscles used CVS: S1,S2,RRR GI: soft, non tender, non distended Neuro: motor grossly intact, alert Psych: appropriate affect, appropriate insight Discharge Plan Discharge Anticipated Discharge Date/Time: 07/04/24 11:18 Patient Disposition: Home, Self-Care Discharge Diagnosis: palpitations Referrals: Jessica Reyna NP [Primary Care Provider] - 1 Week Discharge Medications: Continued atorvastatin 10 mg tablet 5 mg PO DAILY metronidazole 0.75 % cream 1 appl topical BID PRN (Reason: Rash) losartan 100 mg tablet 100 mg PO DAILY multivitamin Tablet 1 tab PO DAILY acetaminophen [Tylenol Extra Strength] 500 mg Tablet 500 mg PO BID acetaminophen [Tylenol Extra Strength] 500 mg Tablet 500 mg PO DAILY PRN (Reason: Pain) calcium carbonate 500 mg calcium (1,250 mg) Tablet 500 mg PO DAILY levothyroxine [Synthroid] 112 mcg Tablet 112 mcg PO DAILY cholecalciferol (vitamin D3) [Vitamin D3] 50 mcg (2,000 unit) Tablet 50 mcg PO DAILY Discharge Orders: Discharge Order (Routine); Ordered 07/04/24 Ordered By: Wild Ramírez Diet: Advance to usual diet Activity on Discharge: As tolerated Stand Alone Forms: Patient Portal Discharge page Print Language: Spanish Care Plan Goals: manage symptoms Health Concerns: chest discomfort Plan of Treatment: follow up with cardiology Assessment: see above
--- NOTE | 2024-07-04 11:25 | MHC.CM.PN ---
Patient has been medically cleared for dc to home today, self care.
== END 2024-07-04 12:41 | disposition home or self-care (01) | DRG 307 ==
LOC: HO.ED 12:05 → HO.EDOVER 18:08 → HO.IMC 07-03 07:57
PROVIDERS: Physician Assistant Medical; Admitting Provider Internal Medicine; Emergency Provider Emergency Medicine; PCP Nurse Practitioner Family; Visit Provider Internal Medicine
DX: I35.8 Other nonrheumatic aortic valve disorders (principal); E03.9 Hypothyroidism, unspecified; I10 Essential (primary) hypertension; E86.0 Dehydration; I95.1 Orthostatic hypotension; E78.5 Hyperlipidemia, unspecified; I07.1 Rheumatic tricuspid insufficiency; R00.2 Palpitations; Z20.822 Contact with and (suspected) exposure to COVID-19; Z79.890 Hormone replacement therapy; Z79.899 Other long term (current) drug therapy
CPT/HCPCS: 0241U; 36415; 71046; 78452; 80048; 80076; 80307; 81001; 81003; 83735; 83880; 84443; 84484; 85025; 85027; 85379; 85610; 93005; 93017; 93306; 99222; 99285; A9500; J1650; Q9957

== ENCOUNTER → 2024-07-02 11:29 | Outpatient (BNV) | payer MEDICARE, BC, SELFPAY | PROVIDERS: Admitting Provider Internal Medicine; Emergency Provider Emergency Medicine; PCP Nurse Practitioner Family; Visit Provider Internal Medicine | DX: R07.9 Chest pain, unspecified (principal) | CPT/HCPCS: 93010 ==

== ENCOUNTER 2024-07-02 18:00 | Outpatient (BNV) | payer MEDICARE, BC, SELFPAY | END 2024-07-03 09:35 | PROVIDERS: Admitting Provider Internal Medicine; Emergency Provider Emergency Medicine; PCP Nurse Practitioner Family; Visit Provider Internal Medicine | DX: I36.1 Nonrheumatic tricuspid (valve) insufficiency (principal) | CPT/HCPCS: 78452; 93016; 93018; 93320; 93325; 93350 ==

== ENCOUNTER → 2024-07-02 18:00 | Outpatient (BNV) | payer MEDICARE, BC, SELFPAY | PROVIDERS: Admitting Provider Internal Medicine; Emergency Provider Emergency Medicine; PCP Nurse Practitioner Family; Visit Provider Internal Medicine | DX: R07.2 Precordial pain (principal) | CPT/HCPCS: 99223; 99232; 99239 ==

== ENCOUNTER → 2024-07-02 18:00 | Outpatient (BNV) | payer MEDICARE, BC, SELFPAY | PROVIDERS: Admitting Provider Internal Medicine; Emergency Provider Emergency Medicine; PCP Nurse Practitioner Family; Visit Provider Internal Medicine | DX: R07.2 Precordial pain (principal) | CPT/HCPCS: 99223; 99232 ==

== ENCOUNTER 2024-08-26 14:14 | Outpatient (REF) | payer MEDICARE, BC, SELFPAY ==
[2024-08-26 15:59] LABS: Anion Gap 8 (12-20); Blood Urea Nitrogen 15 mg/dL (9-16); Calcium 9.9 mg/dL (8.4-10.2); Carbon Dioxide 29 mmol/L (22-29); Chloride 98 mmol/L (96-108); Estimated Glomerular Filt Rate > 60; Glucose Random 166 mg/dL (60-115); Potassium 4.2 mmol/L (3.3-5.1); Sodium 131 mmol/L (135-145)
== END 2024-08-26 14:15 | disposition home or self-care (01) ==
LOC: HO.LAB 14:14
PROVIDERS: PCP Registered Nurse; Visit Provider Internal Medicine
DX: R07.9 Chest pain, unspecified (principal)
CPT/HCPCS: 36415; 80048

== ENCOUNTER 2024-10-14 12:52 | Outpatient (AMB) | payer MEDICARE, BC, SELFPAY ==
[2024-10-14 13:03] VITALS: BP 116/60; PULSE 62; BMI 22.6
--- NOTE | 2024-10-14 13:03 | MHC.OFFVIS ---
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 Previously, seen in the hospital for chest pressure type symptoms. She stated that she was having a sensation of chest pressure/shortness of breath/palpitations when she was doing activities like walking on trails or going up inclines. Thought to be possibly anginal equivalent and she underwent further workup with an echocardiogram and stress test but they were unremarkable. As she continued to have these symptoms even during the exercise component of the stress test, we pursued further testing with a coronary CTA. Overall, she states she is somewhat better but not completely normal. [facility] Medical History (Updated 10/14/24 @ 15:53 by Roni Stahl MD) Overactive bladder Adult onset hypothyroidism Family History Unknown No problems noted. Social History Patient Tobacco Use Status: Never used Tobacco service: No Review of Systems Const Denies chills, Denies fatigue, Denies fever(s), Denies weight gain and Denies weight loss ENT Denies dizziness Card Denies chest pain, Denies leg edema, Denies lightheadedness, Reports palpitations, Reports dyspnea on exertion, Denies orthopnea and Denies other Resp Denies cough and Reports dyspnea on exertion GI Denies hematochezia and Denies change in stool character Musc Denies abnormal gait, Denies muscle weakness, Denies numbness, Denies radiating pain into limb and Denies tingling Neuro Denies abnormal gait, Denies dizziness, Denies numbness and Denies tingling Endo Denies fatigue and Reports palpitations Physical Exam Vital Signs: Last Vital Signs Pulse 62 10/14/24 13:03 BP 116/60 10/14/24 13:03 BMI result Body Mass Index 22.6 Const General: comfortable and no acute distress Orientation/consciousness: patient oriented x3 HEENT Other: Unremarkable Head: Yes normal to inspection Neck Neck: Yes normal visual inspection Chest Chest palpation & inspection: normal inspection of the chest Resp Auscultation: clear to auscultation bilaterally Cardio Palpation: normal PMI Heart sounds: S1 normal heart sound present, S2 normal heart sound present, no gallops, no murmurs and no rubs GI Palpation (GI): Soft to palpation Back/Spine/Pelvis Other: unremarkable Skin General skin exam: no rashes or lesions noted Neuro General: patient oriented x3 Extrem General: Yes normal to inspection Psych Mental Status: mental status grossly normal Assessment & Plan Assessment & Plan (1) Precordial chest pain: Code(s): R07.2 - Precordial pain Category: Medical (2) Atherosclerotic cardiovascular disease: Code(s): I25.10 - Atherosclerotic heart disease of [place] coronary artery without angina pectoris Category: Medical Plan Cardiac studies reviewed. EKG with underlying sinus rhythm at 68/Min; no significant ST-T changes and otherwise unremarkable. Normal NE and corrected QT. In the echocardiogram, LVEF 63%. No wall motion abnormalities. Mild tricuspid regurgitation. In the stress test, she was able to exercise for 7 METS on Marcus protocol and reached target heart rate. Had chest pressure, mild shortness of breath but no EKG evidence of ischemia and the perfusion component was unremarkable. In the coronary CTA, mild coronary disease involving the LAD, circumflex and RCA. Nothing hemodynamically significant. There is mention of possible esophageal dysmotility due to air-fluid levels but patient has no symptoms along those lines. We discussed that as well. Overall, no clear cardiac etiology for her symptoms. With regard to the coronary disease, she states that her statin dose has already been increased through her own PCP- target LDL about 70 mg/dL or lower. She will call us as and when necessary and states that she will follow-up her lipids with her PCP. Total time spent including review of data, counseling, documentation, coordination of care-32 minutes. Coding Level of Care Code Est Pt Level 4 (23929) Diagnoses Precordial chest pain R07.2 Atherosclerotic cardiovascular disease I25.10
== END 2024-10-14 13:39 | disposition home or self-care (01) ==
PROVIDERS: PCP Nurse Practitioner Family; Visit Provider Internal Medicine
DX: R07.2 Precordial pain (principal); I25.10 Atherosclerotic heart disease of native coronary artery without angina pectoris
CPT/HCPCS: 99214

== ENCOUNTER → 2024-10-14 12:52 | Outpatient (BNVA) | payer MEDICARE, BC, SELFPAY | PROVIDERS: PCP Nurse Practitioner Family; Visit Provider Internal Medicine | DX: R07.2 Precordial pain (principal); I25.10 Atherosclerotic heart disease of native coronary artery without angina pectoris; I10 Essential (primary) hypertension | CPT/HCPCS: 99212 ==

== ENCOUNTER 2025-08-22 00:25 | Inpatient (IN) | payer MEDICARE, BC, SELFPAY ==
[2025-08-22] VITALS (16 sets, daily range): BP systolic 87–129; BP diastolic 43–79; PULSE 75–139; RESP 12–19; TEMP 36.4–36.6; O2SAT 96–100; BMI 21.3; BMI 21.5
--- NOTE | 2025-08-22 | ECG_ITS ---
Test Reason : TACHYCARDIA Blood Pressure : */* mmHG Vent. Rate : 112 BPM Atrial Rate : 94 BPM P-R Int : * ms QRS Dur : 88 ms QT Int : 322 ms P-R-T Axes : * 1 118 degrees QTcB Int : 439 ms Atrial fibrillation Nonspecific ST and T wave abnormality Abnormal ECG When compared with ECG of 02-Jul-2024 11:28, Rhythm change Referred By: Generic ED Physician Electronically Signed By: GAIL BORGES
[2025-08-22 00:57] LABS: MANUAL DIFF FLAG NO
[2025-08-22 01:00] LABS: Hematocrit 35.9 % (37.0-47.0); Hemoglobin 12.8 g/dl (12.0-16.0); Imm Gran Abs Auto 0.02 X10*3/uL (0.00-0.03); Imm Gran Pct Auto 0.5 % (0.0-0.4); Lymphocytes Absolute Auto 1.3 X10*3/uL (1.2-4.9); Mean Corpuscular HGB Conc 35.7 g/dl (31.0-35.0); Mean Corpuscular Hemoglobin 35.2 pg (27.0-33.0); Mean Corpuscular Volume 98.6 fL (80.0-98.0); NRBC Abs Auto 0.000 X10*3/uL (0.0-0.012); NRBC Pct Auto 0.0 /100WBC (0.0-0.2); Platelet Count 226 X10*3/uL (160-400); Red Blood Count 3.64 X10*6/uL (4.20-5.50); White Blood Count 4.3 X10*3/uL (4.8-10.8)
--- OUTSIDE RECORDS SUMMARY | 2025-08-22 01:11 | XMS_ITS | Clinical Summary ---
Author Organization [facility] Address [address] [place] [address] Phone Care Team Providers Care Medical Resident Name Role Phone Leonid Wallace NP Primary Care Provider [phone] Allergies No known active allergies Medications atorvastatin (LIPITOR) 10 MG tablet Take 0.5 tablets by mouth every morning. 4 Active losartan (COZAAR) 100 MG tablet Take 1 tablet by mouth every morning. 4 Active metroNIDAZOLE (METROCREAM) 0.75 % cream APPLY TO ROSACEA PRONE AREAS TWICE DAILY 4 Active levothyroxine (SYNTHROID, LEVOTHROID) 112 MCG tablet Take 112 mcg by mouth every morning. Active vitamin E 400 UNIT capsule Take 400 Units by mouth daily. Active ascorbic acid, vitamin C, (VITAMIN C) 500 MG tablet Take 500 mg by mouth daily. Active therapeutic multivitamin tablet Take 1 tablet by mouth daily. Active magnesium oxide 250 mg (150 mg elemental) Tab Take 250 mg by mouth daily. Active calcium carbonate (OS-BRAULIO) 1,250 mg (500 mg elemental) tablet Take 1 tablet by mouth daily. Active Social History Tobacco Use Types Packs/Day Years Used Date Smoking Tobacco: Former Cigarettes Q uit: 1986 Smokeless Tobacco: Never Tobacco Cessation:Counseling Given: Not Answered Alcohol Use Standard Drinks/Week Comments Yes 1 (1 standard drink = 0.6 oz pur e alcohol) Education Answer Date Recorded Are you interested in more education? Not on devonte e 03/16/2023 Are you concerned about learning? Not on file 03/16/2023 No 03/16/2023 No 03/16/2023 Digital Access Answer Date Recorded No 04/14/2023 No 04/14/2023 Reliable internet access at home? Not on file 04/14/2023 Device with a working camera? Not on file Intimate Partner Violence Answer Date R ecorded Are you denied basic needs s uch as food, clothing, or medical care? No 02/07/2024 In the past 12 months have y ou been in a relationship with a person who hurts, threatens, or tries to control you? No 02/07/2024 Are you denied basic needs s uch as food, clothing, or medical care? No 02/07/2024 In the past 12 months have y ou been in a relationship with a person who hurts, threatens, or tries to control you? No 02/07/2024 Comments Unknown Sex and Gender Information Value Date Recorded Sex Assigned at Not on file Legal Sex Female 10:01 PM EDT Gender Identity Not on file Sexual Orientation Not on file Last Filed Vital Signs Vital Sign Reading Time Taken Comments Blood Pressure 119/66 02/07/2024 8:26 AM EDT Pulse 69 02/07/2024 8:26 AM EDT Temperature 35.7 C (96.3 F) 02/07/2024 8:12 AM EDT Respiratory Rate 24 02/07/2024 8:26 AM EDT Oxygen Saturation 100% 02/07/2024 8:26 AM EDT Inhaled Oxygen Concentration - - Weight 68 kg (150 lb) 02/06/2024 8:29 AM EDT Height 170.2 cm (5' 7 ) 02/06/2024 8:29 AM EDT Body Mass Index 23.49 02/06/2024 8:29 AM EDT Plan of Treatment Health Maintenance Due Date Last Done Comments LIPID PANEL 1950 POTASSIUM LEVEL 1950 TSH LEVEL 1950 DEPRESSION SCREENING 1963 SMOKING Hx and SMOKELESS TOBACCO SCREENING 1964 HEPATITIS C SCREENING 1969 MAMMOGRAM 1991 COLOGUARD 1996 FIT TEST 1996 FOBT 1996 SIGMOIDOSCOPY 1996 VIRTUAL COLONOSCOPY 1996 PNEUMOCOCCAL VACCINES (50+ years) (1 of 1 - PCV) 2001 CREATININE LEVEL 10/25/2019 10/25/2018 INFLUENZA VACCINE (#1) 2025 , 08/28/2022, 08/22/2021, Additional history exists COVID-19 VACCINE ( season) 2025 09/04/2023, 10/02/2022, 05/18/2022, Additional history exists Adult Td,Tdap Booster 01/09/2033 01/09/2023, 012 COLONOSCOPY 02/06/2034 02/07/2024 COLORECTAL CANCER SCREENING 02/06/2034 ZOSTER VACCINES Completed 09/20/2020, 06/20, 10/18/2012 RSV VACCINE Completed 11/01/2023 OSTEOPOROSIS SCREENING INITIAL (ONE-TIME) Completed 01/24/2024 HEPATITIS A VACCINES Aged Out No long er eligible based on patient's age to complete this topic HIB VACCINES Aged Out No longer eligi ble based on patient's age to complete this topic MENINGOCOCCAL VACCINES (ACWY) Aged Out No longer eligible based on patient's age to complete this topic MENINGOCOCCAL VACCINES (B) Aged Out N o longer eligible based on patient's age to complete this topic Medical Devices Not on file Procedures Procedure Name Priority Date/Time Associated Diagnosis Comments ENDOSCOPY, COLON 02/07/2024 6:41 AM EDT BD DXA AXIAL (SPINE) WITH HIP Routine 01/24/2024 11:34 AM EST Asymptomatic postmenopausal state CREATININE/EGFR Routine 10/25/2018 11:12 AM EST Routine general medical examination at a health care facility from Last 3 Months or Most Recently Relevant to Health Maintenance Results * ENDOSCOPY, COLON (02/07/2024 6:41 AM EDT) Narrative Transcriptions Federico Nolen MD - 02/07/2024 6:41 AM EDT [facility] Patient Name: Jory Augustin Attending MD:: FEDERICO NOLEN MD, Procedure Date: 02/07/2024 6:41 AM Date of : 1950 Age: 73 Admit Type: Outpatient Gender: Female Room: [facility] Referring MD: LEONID WALLACE NP Exam Type: Colonoscopy Indications: Surveillance: Personal history of adenomatouspolyps on last colonoscopy > 5 years ago, Lastcolonoscopy: October 2018 Medications: Monitored Anesthesia Care Procedure: Informed consent was obtained from the patientafter discussion of the indications, limitations, alternatives, benefits, and risks of the procedure. Risks specifically discussed include but are not limited to medication reactions, missed lesions, bleeding, perforation, or the need for emergent surgery. Throughout the procedure, the patient's blood pressure, pulse, end-tidal CO2, and oxygensaturations were monitored continuously. The Olympus pediatric variable colonoscopePCF-[id number] #1 was introduced through the anus and advanced tothe cecum, identified by the appendiceal orifice, ileocecal valve and palpation. The colonoscopy was technically difficult and complex due to aredundant colon. Successful completion of the procedure was aided by applying abdominal pressure. The patient tolerated the procedure fairly well. The quality of the bowel preparation was evaluated using the BBPS (Union Bowel Preparation Scale) with scores of:Right Colon = 2 (minor amount of residual staining, small fragments of stool and/or opaque liquid, but mucosa seen well), Transverse Colon = 2 (minor amount of residual staining, small fragments of stool and/or opaque liquid, but mucosa seen well) and Left Colon= 1 (portion of mucosa seen, but other areas not well seen due to staining, residual stool and/or opaque liquid). The total BBPS score equals 5. Complications: No immediate complications. Estimated blood loss:None. Findings: The perianal and digital rectal examinations were normal. Pertinent negatives include normalsphincter tone. A few small-mouthed diverticula were found in the sigmoid colon. Extensive vegetable debris/matter, seeds obscuredthe some views of the colon. The colon (entire examined portion) wassignificantly redundant. Retroflexion in the right colon was performed. The exam was otherwise without abnormality ondirect and retroflexion views. Impression: - Diverticulosis in the sigmoid colon. - Extensive vegetable debris/matter, seeds obscured the some views of the colon. - Redundant colon. - The examination was otherwise normal on directand retroflexion views. - No specimens collected. Recommendation: - Repeat colonoscopy in 5 years for surveillancewith a two day prep. FEDERICO NOLEN MD 02/07/2024 8:15:21 AM This report has been signed electronically. Number of Addenda: 0 Note Initiated On: 02/07/2024 6:41 AM Procedure Code(s): --- Professional --- G0105, Colorectal cancer screening; colonoscopy on individual at high risk --- Technical --- G0105, Colorectal cancer screening; colonoscopy on individual at high risk Diagnosis Code(s): --- Professional --- Z86.010, Personal history of colonic polyps K57.30, Diverticulosis of large intestine without perforation or abscess without bleeding Q43.8, Other specified congenital malformations of intestine --- Technical --- Z86.010, Personal history of colonic polyps K57.30, Diverticulosis of large intestine without perforation or abscess without bleeding Q43.8, Other specified congenital malformations of intestine CPT copyright 2021 [employer]. All rights reserved. The codes documented in this report are preliminary and upon straightening machine feeder reviewmay be revised to meet current compliance requirements. Procedure Date: 02/07/2024 6:41:[address] [place] [address] us Leonid Wallace NP GI PROCEDURE ORDERABLES Final R esult * BD DXA AXIAL (SPINE) WITH HIP (01/24/2024 11:34 AM EST) Anatomical Region Laterality Modality Bone Density Bone Density 01/25/2024 12:1 5 PM EST Impressions 01/25/2024 5:05 PM EST Osteopenia based upon bone mineral density lumbar spine and bilateral hips. ATTESTATION: I, Stevenson Lott as teaching physician, have reviewed the images for this case and if necessary edited the report originally created by Landry Cr. Narrative 01/25/2024 5:05 PM EST BD DXA AXIAL (SPINE) WITH HIP INDICATION: Postmenopausal estrogen deficiency. COMPARISON: MRI lumbar spine 02/27/2023. Evaluation of the lumbar spine and both hips is obtained and appears technically adequate. The lumbar spine from L1 through L4 discloses a total bone mineral density of 0.899 g/cm2 T-score: -1.3 Z-Score: 0.9 WHO Classification: Osteopenia The right hip (total) has a total bone mineral density of 0.719 g/cm2 T-score: -1.8 Z-Score: -0.2 WHO Classification: Osteopenia The right hip (neck) has a total bone mineral density of 0.588 g/cm2 T-score: -2.3 Z-Score: -0.4 The left hip (total) has a total bone mineral density of 0.749 g/cm2 T-score: -1.6 Z-Score: 0.1 WHO Classification: Osteopenia The left hip (neck) has a total bone mineral density of 0.611 g/cm2 T-score: -2.1 Z-Score: -0.2 FRAX: 10-Year Fracture Risk Major Osteoporotic Fracture: 13% Hip Fracture: 3.2% Procedure Note Stevenson Lott MD - 01/25/2024 BD DXA AXIAL (SPINE) WITH HIP INDICATION: Postmenopausal estrogen deficiency. COMPARISON: MRI lumbar spine 02/27/2023. Evaluation of the lumbar spine and both hips is obtained and appearstechnically adequate. The lumbar spine from L1 through L4 discloses a total bone mineral densityof 0.899 g/cm2 T-score: -1.3 Z-Score: 0.9 WHO Classification: Osteopenia The right hip (total) has a total bone mineral density of 0.719 g/cm2 T-score: -1.8 Z-Score: -0.2 WHO Classification: Osteopenia The right hip (neck) has a total bone mineral density of 0.588 g/cm2 T-score: -2.3 Z-Score: -0.4 The left hip (total) has a total bone mineral density of 0.749 g/cm2 T-score: -1.6 Z-Score: 0.1 WHO Classification: Osteopenia The left hip (neck) has a total bone mineral density of 0.611 g/cm2 T-score: -2.1 Z-Score: -0.2 FRAX: 10-Year Fracture Risk Major Osteoporotic Fracture: 13% Hip Fracture: 3.2% IMPRESSION: Osteopenia based upon bone mineral density lumbar spine and bilateralhips. ATTESTATION: I, Stevenson Lott as teaching physician, have reviewed theimages for this case and if necessary edited the report originally createdby Landry Cr. us Leonid Wallace RE ETCHER IMG BD BONE DENSITY DEXA Final Result * Creatinine/eGFR (10/25/2018 11:12 AM EST) CREATININE 0.80 0.5 - 1.5 mg/dL [facility] EGFR 76 >59 mL/min/1.7 3m2 [facility] Comment:If patient is black, multiply result by 1.159. Estimated glomerular filtration rate calculated using the CKD-EPI equation. Blood 10/25/2018 11:1 2 AM EST 10/25/2018 11:16 AM EST us Luigi Garcias MD LAB BLOOD ORDERABLES Final Re sult [facility] [address] [place] [address] from Last 3 Months or Most Recently Relevant to Health Maintenance Insurance [place] [employer] FEDERAL MEDICARE PART A & B [facility] FEDERAL MEDICARE PART A & B [facility] MEDICARE PART A & B [facility] MEDICARE PART A & B [facility] MEDICARE PART A & B [facility] FEDERAL MEDICARE PART A & B [facility] FEDERAL MEDICARE PART A & B [facility] MEDICARE PART A & B [facility] MEDICARE PART A & B Care Teams Medical Resident Relationship Specialty Start Date End Date Leonid Wallace NP [address] [place] [address] PCP - General Family Medicine 04/05/20 Additional Source Comments The information contained in this document represents components of the legal health record. It is not the complete legal health record.[facility]
--- OUTSIDE RECORDS SUMMARY | 2025-08-22 01:12 | XMS_ITS | Encounter Summary ---
Author Organization [facility] Address [address] [place] [address] Phone Care Team Providers Care Homeland Security Program Specialist Name Role Phone Jessica Reyna BED MAKER Primary Care Provider [phone] Encounter Details Date Type Department Care Team (Late st Contact Info) Description 02/01/2023 Procedure Pass [facility], [address] [address] Social History Tobacco Use Types Packs/Day Years Used Date Smoking Tobacco: Never Assessed Comments Unknown Sex and Gender Information Value Date Recorded Sex Assigned at Not on file Legal Sex Female 10:01 PM EDT Gender Identity Not on file Sexual Orientation Not on file documented as of this encounter Plan of Treatment Not on file documented as of this encounter Visit Diagnoses Not on filedocumented in this encounter Care Teams Homeland Security Program Specialist Relationship Specialty Start Date End Date Jessica Reyna NP [address] [place] [address] PCP - General Family Medicine 04/05/20 documented as of this encounter Additional Source Comments The information contained in this document represents components of the legal health record. It is not the complete legal health record.[facility]
--- OUTSIDE RECORDS SUMMARY | 2025-08-22 01:12 | XMS_ITS | Encounter Summary ---
Author Organization [facility] Address [address] [place] [address] [place] [address] Phone Care Team Providers Care Track Broom Operator Name Role Phone Jessica Reyna NP Primary Care Provider [phone] Encounter Details Date Type Department Care Team (Latest Contact Info) Description 07/12/2023 Transcribe Orders Virtual Department [address] [place] [address] Jessica Reyna NP [address] [place] [address] Asymptomatic postmenopausal state (Primary Dx) Social History Tobacco Use Types Packs/Day Years Used Date Smoking Tobacco: Never Assessed Education Answer Date Recorded Are you interested in more education? Not on devonte e 03/16/2023 Are you concerned about learning? Not on file 03/16/2023 No 03/16/2023 No 03/16/2023 Digital Access Answer Date Recorded No 04/14/2023 No 04/14/2023 Reliable internet access at home? Not on file 04/14/2023 Device with a working camera? Not on file Comments Unknown Sex and Gender Information Value Date Recorded Sex Assigned at Not on file Legal Sex Female 10:01 PM EDT Gender Identity Not on file Sexual Orientation Not on file documented as of this encounter Plan of Treatment Not on file documented as of this encounter Results * BD DXA AXIAL (SPINE) WITH HIP [...] edited the report originally createdby Landry Cr. Jessica Reyna NP IMG BD BONE DENSITY DEXA Final Result documented in this encounter Visit Diagnoses Diagnosis Asymptomatic postmenopausal state- Primary Asymptomatic postmenopausal state documented in this encounter Care Teams Track Broom Operator Relationship Specialty Start Date End Date Jessica Reyna NP [address] [place] [address] PCP - General Family Medicine 04/05/20 documented as of this encounter Additional Source Comments The information contained in this document represents components of the legal health record. It is not the complete legal health record.[facility]
--- OUTSIDE RECORDS SUMMARY | 2025-08-22 01:12 | XMS_ITS | Encounter Summary ---
Author Organization [facility] Address [address] [place] [address] Phone Care Team Providers Care Nut Sorter Name Role Phone Jessica Reyna FABRICATING MACHINE OPERATOR Primary Care Provider [phone] Encounter Details Date Type Department Care Team (Late st Contact Info) Description 07/12/2021 Transcribe Orders [facility] [address] [place] [address] Jessica Reyna NP [address] [place] [address] Social History Tobacco Use Types Packs/Day Years [...] on filedocumented in this encounter Care Teams Nut Sorter Relationship Specialty Start Date End Date Jessica Reyna NP [address] [place] [address] PCP - General Family Medicine 04/05/20 documented as of this encounter Additional Source Comments The information contained in this document represents components of the legal health record. It is not the complete legal health record.[facility]
--- OUTSIDE RECORDS SUMMARY | 2025-08-22 01:12 | XMS_ITS | Encounter Summary ---
Author Organization [facility] Address [address] [place] [address] Phone Care Team Providers Care Obstetrics Nurse Practitioner Name Role Phone Shaun Lanza MD Primary Care Provider [phone] Jessica Reyna NP Primary Care Provider [phone] Encounter Details Date Type Department Care Team (Late st Contact Info) Description 02/20/2018 Procedure Pass [facility], [address] [address] Social History Tobacco Use Types Packs/Day Years [...] Diagnoses Not on filedocumented in this encounter Additional Health Concerns Infection Onset Date Last Indicated Resolved Time CoV-Risk Comment:Referred for COVID-19 testing 04/05/2020 04/06/2020 04/19/2020 1:24 AM E DT documented as of this encounter Care Teams Obstetrics Nurse Practitioner Relationship Specialty Start Date End Date Shaun Lanza MD PCP - General 11/22/17 04/04/20 Jessica Reyna NP [address] [place] [address] PCP - General Family Medicine 04/05/20 documented as of this encounter Additional Source Comments The information contained in this document represents components of the legal health record. It is not the complete legal health record.[facility]
--- OUTSIDE RECORDS SUMMARY | 2025-08-22 01:12 | XMS_ITS | Encounter Summary ---
Author Organization [facility] Address [address] [place] [address] Phone Care Team Providers Care Sports Bookmaker Name Role Phone Shaun Lanza MD Primary Care Provider [phone] Jessica Reyna NP Primary Care Provider Reason for Referral * MRI/CAT Scan - Closed Specialty Diagnoses / Procedures Referred By Brayden [email or web address] Referred To Contact Radiology Diagnoses History of weakness of extremity Procedures MRI Cervical Spine Keny Villagran DO Phone: tel: fax: [email or web address] Referral ID Status Reason Start Date Expiration Date Visits Re quested Visits Authorized [id number] Closed 02/20/2018 02/20/2019 1 1 * MRI/CAT Scan - Closed Specialty Diagnoses / Procedures Referred By Brayden zamarripa Referred To Contact Radiology Diagnoses History of weakness of extremity Procedures MRI Lumbar Spine Keny Villagran DO Phone: tel: fax: [email or web address] Referral ID Status Reason Start Date Expiration Date Visits Re quested Visits Authorized [id number] Closed 02/20/2018 02/20/2019 1 1 Encounter Details Date Type Department Care Team ([facility] st Contact Info) Description 02/20/2018 Ancillary Orders Virtual Department [address] [place] [address] Keny Villagran, DO [address] [place] [address] [email or web address] History of weakness of extremity Social History Tobacco Use Types Packs/Day Years Used Date Smoking Tobacco: Never Assessed Comments Unknown Sex and Gender Information Value Date Recorded Sex Assigned at Not on file Legal Sex Female 10:01 PM EDT Gender Identity Not on file Sexual Orientation Not on file documented as of this encounter Plan of Treatment Not on file documented as of this encounter Results * MRI LUMBAR SPINE (NEURO) WITHOUT CONTRAST (03/01/2018 7:51 PM EDT) Anatomical Region Laterality Modality L-spine Magnetic Resonan ce 03/01/2018 8:13 PM EDT Impressions 03/01/2018 8:20 PM EDT 1. Scoliosis and multilevel thoracolumbar degenerative disc disease as outlined above. No disc herniation, nerve compression, canal stenosis or severe neural foraminal stenosis. 2. Mild bilateral collecting system fullness which may be due to vesicoureteral reflux from a distended bladder. Further imaging evaluation with a renal/bladder ultrasound should be made on a clinical basis. POS - [id number] Narrative 03/01/2018 8:20 PM EDT COMPARISON: Lumbar spine x-rays 11/29/2017. TECHNIQUE: Exam performed on a 1.5 Lori high-field MRI scanner. Sagittal T1, T2 and STIR, axial T1 and T2 sequences were obtained. MRI LUMBAR SPINE FINDINGS: Mild lower lumbar levoscoliosis. Grade 1 spondylolisthesis of L4 measuring 5 mm and 4 mm retrolisthesis of L1. Multilevel endplate osteophytes. Mild disc space narrowing from T11-12 to L1-2 and moderate L4-5 disc space narrowing. Diffuse disc desiccation. No compression fracture deformities. Minimal degenerative endplate marrow edema signal changes from T11-12 to L1-2. No suspicious marrow signal changes. Conus terminates at L1-2. Paraspinal soft tissues are normal. Additional finding is: Mild bilateral collections fullness of uncertain etiology. This may be due to reflux from a distended bladder. Bladder is not imaged. L1-L2: L1 retrolisthesis and disc bulging with mild facet arthropathy. L2-L3: Generalized disc bulging and facet arthropathy. L3-L4: Generalized disc bulging with moderate facet arthropathy and ligamentum flavum hypertrophy. Mild bilateral neural foraminal stenosis due to endplate spurring and facet arthropathy. L4-L5: Generalized disc bulging with severe facet arthropathy and ligamentum flavum hypertrophy. Mild right neural foraminal stenosis due to endplate spurring and facet arthropathy. L5-S1: Moderate left and severe right facet arthropathy. Procedure Note Briseyda Alaniz MD - 03/01/2018 COMPARISON: Lumbar spine x-rays 11/29/2017. TECHNIQUE: Exam performed on a 1.5 Lori high-field MRI scanner. SagittalT1, T2 and STIR, axial T1 and T2 sequences were obtained. MRI LUMBAR SPINE FINDINGS: Mild lower lumbar levoscoliosis. Grade 1 spondylolisthesis of R2xxtuptmya 5 mm and 4 mm retrolisthesis of L1. Multilevel endplateosteophytes. Mild disc space narrowing from T11-12 to L1-2 and moderateL4-5 disc space narrowing. Diffuse disc desiccation. No compressionfracture deformities. Minimal degenerative endplate marrow edema signalchanges from T11-12 to L1-2. No suspicious marrow signal changes. Conusterminates at L1-2. Paraspinal soft tissues are normal. Additional finding is: Mild bilateral collections fullness of uncertainetiology. This may be due to reflux from a distended bladder. Bladder isnot imaged. L1-L2: L1 retrolisthesis and disc bulging with mild facet arthropathy. L2-L3: Generalized disc bulging and facet arthropathy. L3-L4: Generalized disc bulging with moderate facet arthropathy andligamentum flavum hypertrophy. Mild bilateral neural foraminal stenosisdue to endplate spurring and facet arthropathy. L4-L5: Generalized disc bulging with severe facet arthropathy andligamentum flavum hypertrophy. Mild right neural foraminal stenosis dueto endplate spurring and facet arthropathy. L5-S1: Moderate left and severe right facet arthropathy. IMPRESSION: 1. Scoliosis and multilevel thoracolumbar degenerative disc disease asoutlined above. No disc herniation, nerve compression, canal stenosis orsevere neural foraminal stenosis. 2. Mild bilateral collecting system fullness which may be due tovesicoureteral reflux from a distended bladder. Further imagingevaluation with a renal/bladder ultrasound should be made on a clinicalbasis. POS - [id number] us Keny C Villagran DO IMG MR XSPECIALTY Final Resu lt * MRI CERVICAL SPINE (NEURO) FOCUS WITHOUT CONTRAST (03/01/2018 7:45 PM EDT) Anatomical Region Laterality Modality C-spine Magnetic Resonan ce 03/01/2018 7:34 PM EDT Impressions 03/01/2018 7:49 PM EDT C4-5 through C6-7 degenerative disc disease and multilevel neural foraminal stenosis. No disc herniation or canal stenosis. POS - [id number] Narrative 03/01/2018 7:49 PM EDT COMPARISON: Cervical spine x-rays 11/29/2017. TECHNIQUE: Exam performed on a 1.5 Lori high-field MRI scanner. Sagittal T1, T2 and STIR, axial T2* gradient echo and 3-D bright fluid sequences were obtained. MRI CERVICAL SPINE FINDINGS: Stable reversal of cervical lordosis at C4-5 with moderate disc space narrowing from C4-5 through C6-7 with endplate spurring. No bone marrow signal abnormality. No cerebellar tonsil herniation or spinal cord signal abnormality. Paraspinal soft tissues are normal. C2-3: Normal. C3-4: Normal. C4-5: 2 mm C4 retrolisthesis and small generalized disc ossified complex. Bilateral cortical spurring causing severe right and moderate left neural foraminal stenosis. No canal stenosis. C5-6: Posterior endplate spurring and uncovertebral spurring causing moderate bilateral neural foraminal stenosis. C6-7: Posterior endplate spurring and uncovertebral osteophytes causing moderate right and mild left neural foraminal stenosis. C7-T1: Unremarkable. Procedure Note Briseyda Alaniz MD - 03/01/2018 COMPARISON: Cervical spine x-rays 11/29/2017. TECHNIQUE: Exam performed on a 1.5 Lori high-field MRI scanner. SagittalT1, T2 and STIR, axial T2* gradient echo and 3-D bright fluid sequenceswere obtained. MRI CERVICAL SPINE FINDINGS: Stable reversal of cervical lordosis at C4-5 with moderate disc spacenarrowing from C4-5 through C6-7 with endplate spurring. No bone marrowsignal abnormality. No cerebellar tonsil herniation or spinal cord signalabnormality. Paraspinal soft tissues are normal. C2-3: Normal. C3-4: Normal. C4-5: 2 mm C4 retrolisthesis and small generalized disc ossified complex.Bilateral cortical spurring causing severe right and moderate left neuralforaminal stenosis. No canal stenosis. C5-6: Posterior endplate spurring and uncovertebral spurring causingmoderate bilateral neural foraminal stenosis. C6-7: Posterior endplate spurring and uncovertebral osteophytes causingmoderate right and mild left neural foraminal stenosis. C7-T1: Unremarkable. IMPRESSION: C4-5 through C6-7 degenerative disc disease and multilevel neuralforaminal stenosis. No disc herniation or canal stenosis. POS - [id number] Keny Villagran IMG MR XSPECIALTY Final Resu lt documented in this encounter Visit Diagnoses Diagnosis History of weakness of extremity History of weakness of extremity History of weakness of extremity documented in this encounter Additional Health Concerns Infection Onset Date Last Indicated Resolved Time CoV-Risk Comment:Referred for COVID-19 testing 04/05/2020 04/06/2020 04/19/2020 1:24 AM E DT documented as of this encounter Care Teams Sports Bookmaker Relationship Specialty Start Date End Date Shaun Lanza MD [email or web address] PCP - General 11/22/17 04/04/20 Jessica Reyna NP [address] [place] [address] PCP - General Family Medicine 04/05/20 documented as of this encounter Additional Source Comments The information contained in this document represents components of the legal health record. It is not the complete legal health record.[facility]
--- OUTSIDE RECORDS SUMMARY | 2025-08-22 01:12 | XMS_ITS | Encounter Summary ---
Author Organization [facility] Address [address] [place] [address] [place] [address] Phone Care Team Providers Care Transport Aide Name Role Phone Shaun Lanza MD Primary Care Provider [phone] Jessica Reyna NP Primary Care Provider [phone] Encounter Details Date Type Department Care Team (Late st Contact Info) Description 11/29/2017 Ancillary Orders [facility] [address] [place] [address] Keny Villagran, DO [address] [place] [address] [email or web address] Spondylosis of lumbar region without myelopathy or radiculopathy; Cervicalgia Social History Tobacco Use Types Packs/Day Years Used Date Smoking Tobacco: Never Assessed Comments Unknown Sex and Gender Information Value Date Recorded Sex Assigned at Not on file Legal Sex Female 10:01 PM EDT Gender Identity Not on file Sexual Orientation Not on file documented as of this encounter Plan of Treatment Not on file documented as of this encounter Results * XR LUMBOSACRAL SPINE 4 OR MORE VIEWS (11/29/2017 10:35 AM EST) Anatomical Region Laterality Modality L-spine Radiographic Kristen ging 11/29/2017 10:5 4 AM EST Impressions 11/29/2017 12:55 PM EST Scoliosis and moderate multilevel degenerative changes greatest at L4-5 where there is grade 1 spondylolisthesis secondary to facet arthropathy. POS - [id number] Edited by: Pippa Vdial on 11/29/2017 11:19 AM Narrative 11/29/2017 12:55 PM EST HISTORY: Low back pain COMPARISON: None FINDINGS: Five views of the lumbar spine are performed. There are five lumbar-type vertebral bodies. Mild levoscoliosis. No compression deformities. No evidence of spondylolysis. Diffuse facet arthropathy greatest and severe at the L4-5 level. Moderate disc space narrowing at L4-5. Mild disc space narrowing from L1-2 through L3-4. 2 mm of anterolisthesis of L4 and L5 likely secondary to facet arthropathy. Large volume of stool in the colon. Procedure Note Yudy Garcia MD - 11/29/2017 HISTORY: Low back pain COMPARISON: None FINDINGS: Five views of the lumbar spine are performed. There are five lumbar- typevertebral bodies. Mild levoscoliosis. No compression deformities. Noevidence of spondylolysis. Diffuse facet arthropathy greatest and severeat the L4-5 level. Moderate disc space narrowing at L4-5. Mild discspace narrowing from L1-2 through L3-4. 2 mm of anterolisthesis of L4 andL5 likely secondary to facet arthropathy. Large volume of stool in thecolon. IMPRESSION: Scoliosis and moderate multilevel degenerative changes greatest at L4-5where there is grade 1 spondylolisthesis secondary to facet arthropathy. POS - [id number] Edited by: Pippa Vidal on 11/29/2017 11:19 AM Keny Villagran DO IMG XR SPINE Final Result * XR CERVICAL SPINE 4-5 VIEWS (11/29/2017 10:34 AM EST) Anatomical Region Laterality Modality C-spine Radiographic Kristen ging 11/29/2017 10:4 5 AM EST Impressions 11/29/2017 12:54 PM EST Multilevel degenerative changes greatest at the C4-5 through C6-7 levels where there is bilateral neural foraminal encroachment. POS - [id number] Edited by: Pippa Vidal on 11/29/2017 11:18 AM Narrative 11/29/2017 12:54 PM EST HISTORY: Neck pain and malalignment. COMPARISON: None FINDINGS: Five views of the cervical spine are performed. Reversal of the normal cervical lordosis. Vertebral body heights are maintained. Moderate to severe disc space narrowing at C4-5 through C6-7 with endplate osteophytes. Multilevel facet arthropathy greatest and severe at the C7-T1 and T1-2 levels. Minimal anterolisthesis at these levels likely secondary to facet arthropathy. On the right prominent neural foraminal encroachment from C4-5 to C6-7. On the left, prominent neural foraminal encroachment at C4-5 and milder at C5-6. Atlantoaxial distance is within normal limits. Odontoid is intact. No abnormal thickening of the prevertebral soft tissues. Procedure Note Yudy Garcia MD - 11/29/2017 HISTORY: Neck pain and malalignment. COMPARISON: None FINDINGS: Five views of the cervical spine are performed. Reversal of the normalcervical lordosis. Vertebral body heights are maintained. Moderate tosevere disc space narrowing at C4-5 through C6-7 with endplateosteophytes. Multilevel facet arthropathy greatest and severe at theC7-T1 and T1-2 levels. Minimal anterolisthesis at these levels likelysecondary to facet arthropathy. On the right prominent neural foraminal encroachment from C4-5 to C6-7.On the left, prominent neural foraminal encroachment at C4-5 and milder atC5-6. Atlantoaxial distance is within normal limits. Odontoid is intact.No abnormal thickening of the prevertebral soft tissues. IMPRESSION: Multilevel degenerative changes greatest at the C4-5 through C6-7 levelswhere there is bilateral neural foraminal encroachment. POS - [id number] Edited by: Pippa Vidal on 11/29/2017 11:18 AM us Keny Villagran DO IMG XR SPINE Final Result documented in this encounter Visit Diagnoses Diagnosis Spondylosis of lumbar region without myelopathy or radiculopathy Cervicalgia Spondylosis of lumbar region without myelopathy or radiculopathy Cervicalgia Spondylosis of lumbar region without myelopathy or radiculopathy documented in this encounter Additional Health Concerns Infection Onset Date Last Indicated Resolved Time CoV-Risk Comment:Referred for COVID-19 testing 04/05/2020 04/06/2020 04/19/2020 1:24 AM E DT documented as of this encounter Care Teams Transport Aide Relationship Specialty Start Date End Date Shaun Lanza MD [email or web address] PCP - General 11/22/17 04/04/20 Jessica Reyna NP [address] [place] [address] PCP - General Family Medicine 04/05/20 documented as of this encounter Additional Source Comments The information contained in this document represents components of the legal health record. It is not the complete legal health record.[facility]
--- OUTSIDE RECORDS SUMMARY | 2025-08-22 01:12 | XMS_ITS | Encounter Summary ---
Author Organization [facility] Address [address] [place] [address] Phone Care Team Providers Care Group Product Manager Name Role Phone Shaun Lanza MD Primary Care Provider [phone] Jessica Reyna NP Primary Care Provider [phone] Encounter Details Date Type Department Care Team (Late st Contact Info) Description 02/20/2018 Procedure Pass [facility], [address] [address] Social History Tobacco Use Types Packs/Day Years [...] documented as of this encounter Care Teams Group Product Manager Relationship Specialty Start Date End Date Shaun Lanza MD PCP - General 11/22/17 04/04/20 Jessica Reyna NP [address] [place] [address] PCP - General Family Medicine 04/05/20 documented as of this encounter Additional Source Comments The information contained in this document represents components of the legal health record. It is not the complete legal health record.[facility]
--- OUTSIDE RECORDS SUMMARY | 2025-08-22 01:12 | XMS_ITS | Encounter Summary ---
Author Organization [facility] Address [address] [place] [address] Phone Care Team Providers Care Satellite Tv Technician Installer Name Role Phone Shaun Lanza MD Primary Care Provider [phone] Jessica Reyna NP Primary Care Provider [phone] Encounter Details Date Type Department Care Team (Latest Contact Info) Description 10/25/2018 Transcribe Orders [facility] Laboratory [address] [place] [address] Luigi Garcias MD [address] [place] [phone] [email or web address] Routine general medical examination at a health care facility (Primary Dx) Social History Tobacco Use Types [...] documented as of this encounter Results * Creatinine/eGFR (10/25/2018 11:12 AM EST) CREATININE 0.80 0.5 - 1.5 mg/dL [facility] EGFR 76 >59 mL/min/1.7 3m2 [facility] Comment:If patient is black, multiply result by 1.159. Estimated glomerular filtration rate calculated using the CKD-EPI equation. Blood 10/25/2018 11:1 2 AM EST 10/25/2018 11:16 AM EST Luigi Garcias MD LAB BLOOD ORDERABLES Final Re sult Performing Organization Address City/[facility]/ZIP Co de Phone Number [address] [address] * BUN (10/25/2018 11:12 AM EST) BUN 12 6 - 19 mg/dL [facility] Blood 10/25/2018 11:1 2 AM EST 10/25/2018 11:16 AM EST Luigi Garcias MD LAB BLOOD ORDERABLES Final Re sult Performing Organization Address [facility] Co de Phone Number [address] [address] documented in this encounter Visit Diagnoses Diagnosis Routine general medical examination at a health care facility- Primary documented in this encounter Additional Health Concerns Infection Onset Date Last Indicated Resolved Time CoV-Risk Comment:Referred for COVID-19 testing 04/05/2020 04/06/2020 04/19/2020 1:24 AM E DT documented as of this encounter Care Teams Satellite Tv Technician Installer Relationship Specialty Start Date End Date Shaun Lanza MD [email or web address] PCP - General 11/22/17 04/04/20 Jessica Reyna NP [address] [place] [address] PCP - General Family Medicine 04/05/20 documented as of this encounter Additional Source Comments The information contained in this document represents components of the legal health record. It is not the complete legal health record.[facility]
--- OUTSIDE RECORDS SUMMARY | 2025-08-22 01:12 | XMS_ITS | Encounter Summary ---
Author Organization [facility] Address [address] [place] [address] Phone Care Team Providers Care Sports Physical Therapist Name Role Phone Jessica Reyna CARDIAC CARE UNIT NURSE Primary Care Provider [phone] Encounter Details Date Type Department Care Team (Late st Contact Info) Description 02/01/2023 Procedure Pass [facility], [address] [address] Social History Tobacco Use Types Packs/Day Years [...] on filedocumented in this encounter Care Teams Sports Physical Therapist Relationship Specialty Start Date End Date Jessica Reyna NP [address] [place] [address] PCP - General Family Medicine 04/05/20 documented as of this encounter Additional Source Comments The information contained in this document represents components of the legal health record. It is not the complete legal health record.[facility]
--- OUTSIDE RECORDS SUMMARY | 2025-08-22 01:12 | XMS_ITS | Encounter Summary ---
Author Organization [facility] Address [address] [place] [address] [place] [address] Phone Care Team Providers Care Renal Dialysis Rn Name Role Phone Jessica Reyna NP Primary Care Provider [phone] Encounter Details Date Type Department Care Team (Late st Contact Info) Description 02/07/2024 Procedure Pass [facility] Endoscopy Admitting Dept Virtual Department [address] [place] [address] Social History Tobacco Use Types Packs/Day Years Used Date Smoking Tobacco: Former Cigarettes Q uit: 1986 Smokeless Tobacco: Never Alcohol Use Standard Drinks/Week Comments Yes 1 [...] on filedocumented in this encounter Care Teams Renal Dialysis Rn Relationship Specialty Start Date End Date Jessica Reyna NP [address] [place] [address] PCP - General Family Medicine 04/05/20 documented as of this encounter Additional Source Comments The information contained in this document represents components of the legal health record. It is not the complete legal health record.[facility]
--- OUTSIDE RECORDS SUMMARY | 2025-08-22 01:12 | XMS_ITS | Encounter Summary ---
Author Organization [facility] Address [address] [place] [id number] Phone Care Team Providers Care Personnel Consultant Name Role Phone Jessica Reyna NP Primary Care Provider [phone] Reason for Referral * MRI/CAT Scan - Closed Specialty Diagnoses / Procedures Referred By Contac t Referred To Contact Radiology Diagnoses Radiculopathy, thoracolumbar region Procedures MRI Lumbar Spine Keny Villagran DO Phone: tel: fax: mailto:[email or web address] Referral ID Status Reason Start Date Expiration Date Visits Re quested Visits Authorized [id number] Closed 02/01/2023 02/01/2024 1 1 * MRI/CAT Scan - Closed Specialty Diagnoses / Procedures Referred By Contac t Referred To Contact Radiology Diagnoses Radiculopathy, thoracolumbar region Procedures MRI Thoracic Spine Keny Villagran DO Phone: tel: fax: mailto:[email or web address] Referral ID Status Reason Start Date Expiration Date Visits Re quested Visits Authorized [id number] Closed 02/01/2023 02/01/2024 1 1 Encounter Details Date Type Department Care Team (Latest Contact Info) Description 02/01/2023 Transcribe Orders Virtual Department [address] [place] [address] Keny Villagran, DO [address] [place] [address] [email or web address] Radiculopathy, thoracolumbar region (Primary Dx) Social History Tobacco Use Types [...] as of this encounter Results * MRI THORACIC SPINE (BONE) WITHOUT CONTRAST (02/27/2023 2:08 PM EDT) Anatomical Region Laterality Modality T-spine Magnetic Resonan ce 02/28/2023 4:26 PM EDT Impressions 02/28/2023 4:35 PM EDT Multilevel facet and disc degenerative changes in the thoracolumbar spine. No high-grade spinal canal or foraminal stenosis. Narrative 02/28/2023 4:35 PM EDT MRI THORACIC SPINE (BONE) WITHOUT CONTRAST, MRI LUMBAR SPINE (BONE) WITHOUT CONTRAST COMPARISON: MRI LUMBAR SPINE (NEURO) WITHOUT CONTRAST THORACIC SPINE FINDINGS: Alignment and Vertebrae: Normal alignment. No compression fracture. Marrow: No bone marrow replacing lesion. Discs and Endplates: Mild multilevel facet and disc degenerative changes, however, there is no spinal canal or foraminal stenosis. Spinal Cord: Normal. No spinal cord compression or signal abnormality. LUMBAR SPINE FINDINGS: Alignment and Vertebrae: Dextroconvex curvature about the thoracolumbar junction and levoconvex curvature of the lumbar spine. No fracture. Marrow: No bone marrow replacing lesion. Conus: Normal. Incidental findings: Right renal cyst. Findings by level (unless otherwise specified, findings are unchanged): T12-L1: No significant posterior disc abnormality. No spinal canal or foraminal stenosis. L1-L2: Slight retrolisthesis. Bilateral facet arthropathy. Concentric disc bulge. No spinal canal or foraminal stenosis. L2-L3: Bilateral facet arthropathy. Concentric disc bulge. No spinal canal or foraminal stenosis. L3-L4: Bilateral facet arthropathy. Ligamentum flavum thickening. Concentric disc bulge. No spinal canal stenosis. No foraminal stenosis. L4-L5: Bilateral facet arthropathy. Concentric disc bulge. Mild spinal canal stenosis. Mild bilateral foraminal stenosis. L5-S1: Mild degenerative endplate edema. Severe bilateral facet arthropathy. Eccentric to the left disc bulge. No spinal canal stenosis. Mild left foraminal stenosis. Procedure Note Nestor Rodriguez MD - 02/28/2023 MRI THORACIC SPINE (BONE) WITHOUT CONTRAST, MRI LUMBAR SPINE (BONE) WITHOUT CONTRAST COMPARISON: MRI LUMBAR SPINE (NEURO) WITHOUT CONTRAST THORACIC SPINE FINDINGS: Alignment and Vertebrae: Normal alignment. No compression fracture. Marrow: No bone marrow replacing lesion. Discs and Endplates: Mild multilevel facet and disc degenerative changes,however, there is no spinal canal or foraminal stenosis. Spinal Cord: Normal. No spinal cord compression or signal abnormality. LUMBAR SPINE FINDINGS: Alignment and Vertebrae: Dextroconvex curvature about the thoracolumbar junction and levoconvexcurvature of the lumbar spine. No fracture. Marrow: No bone marrow replacing lesion. Conus: Normal. Incidental findings: Right renal cyst. Findings by level (unless otherwise specified, findings are unchanged): T12-L1: No significant posterior disc abnormality. No spinal canal orforaminal stenosis. L1-L2: Slight retrolisthesis. Bilateral facet arthropathy. Concentric discbulge. No spinal canal or foraminal stenosis. L2-L3: Bilateral facet arthropathy. Concentric disc bulge. No spinal canalor foraminal stenosis. L3-L4: Bilateral facet arthropathy. Ligamentum flavum thickening.Concentric disc bulge. No spinal canal stenosis. No foraminal stenosis. L4-L5: Bilateral facet arthropathy. Concentric disc bulge. Mild spinalcanal stenosis. Mild bilateral foraminal stenosis. L5-S1: Mild degenerative endplate edema. Severe bilateral facetarthropathy. Eccentric to the left disc bulge. No spinal canal stenosis.Mild left foraminal stenosis. IMPRESSION: Multilevel facet and disc degenerative changes in the thoracolumbar spine.No high-grade spinal canal or foraminal stenosis. us Keny Villagran DO IMG MR XSPECIALTY Final Resu lt * MRI LUMBAR SPINE (BONE) WITHOUT CONTRAST (02/27/2023 2:07 PM EDT) Anatomical Region Laterality Modality L-spine Magnetic Resonan ce 02/28/2023 4:26 PM EDT Impressions 02/28/2023 4:35 PM EDT Multilevel facet and disc degenerative changes in the thoracolumbar spine. No high-grade spinal canal or foraminal stenosis. Narrative 02/28/2023 4:35 PM EDT MRI THORACIC SPINE (BONE) WITHOUT CONTRAST, MRI LUMBAR SPINE (BONE) WITHOUT CONTRAST COMPARISON: MRI LUMBAR SPINE (NEURO) WITHOUT CONTRAST THORACIC SPINE FINDINGS: Alignment and Vertebrae: Normal alignment. No compression fracture. Marrow: No bone marrow replacing lesion. Discs and Endplates: Mild multilevel facet and disc degenerative changes, however, there is no spinal canal or foraminal stenosis. Spinal Cord: Normal. No spinal cord compression or signal abnormality. LUMBAR SPINE FINDINGS: Alignment and Vertebrae: Dextroconvex curvature about the thoracolumbar junction and levoconvex curvature of the lumbar spine. No fracture. Marrow: No bone marrow replacing lesion. Conus: Normal. Incidental findings: Right renal cyst. Findings by level (unless otherwise specified, findings are unchanged): T12-L1: No significant posterior disc abnormality. No spinal canal or foraminal stenosis. L1-L2: Slight retrolisthesis. Bilateral facet arthropathy. Concentric disc bulge. No spinal canal or foraminal stenosis. L2-L3: Bilateral facet arthropathy. Concentric disc bulge. No spinal canal or foraminal stenosis. L3-L4: Bilateral facet arthropathy. Ligamentum flavum thickening. Concentric disc bulge. No spinal canal stenosis. No foraminal stenosis. L4-L5: Bilateral facet arthropathy. Concentric disc bulge. Mild spinal canal stenosis. Mild bilateral foraminal stenosis. L5-S1: Mild degenerative endplate edema. Severe bilateral facet arthropathy. Eccentric to the left disc bulge. No spinal canal stenosis. Mild left foraminal stenosis. Procedure Note Nestor Rodriguez MD - 02/28/2023 MRI THORACIC SPINE (BONE) WITHOUT CONTRAST, MRI LUMBAR SPINE (BONE) WITHOUT CONTRAST COMPARISON: MRI LUMBAR SPINE (NEURO) WITHOUT CONTRAST THORACIC SPINE FINDINGS: Alignment and Vertebrae: Normal alignment. No compression fracture. Marrow: No bone marrow replacing lesion. Discs and Endplates: Mild multilevel facet and disc degenerative changes,however, there is no spinal canal or foraminal stenosis. Spinal Cord: Normal. No spinal cord compression or signal abnormality. LUMBAR SPINE FINDINGS: Alignment and Vertebrae: Dextroconvex curvature about the thoracolumbar junction and levoconvexcurvature of the lumbar spine. No fracture. Marrow: No bone marrow replacing lesion. Conus: Normal. Incidental findings: Right renal cyst. Findings by level (unless otherwise specified, findings are unchanged): T12-L1: No significant posterior disc abnormality. No spinal canal orforaminal stenosis. L1-L2: Slight retrolisthesis. Bilateral facet arthropathy. Concentric discbulge. No spinal canal or foraminal stenosis. L2-L3: Bilateral facet arthropathy. Concentric disc bulge. No spinal canalor foraminal stenosis. L3-L4: Bilateral facet arthropathy. Ligamentum flavum thickening.Concentric disc bulge. No spinal canal stenosis. No foraminal stenosis. L4-L5: Bilateral facet arthropathy. Concentric disc bulge. Mild spinalcanal stenosis. Mild bilateral foraminal stenosis. L5-S1: Mild degenerative endplate edema. Severe bilateral facetarthropathy. Eccentric to the left disc bulge. No spinal canal stenosis.Mild left foraminal stenosis. IMPRESSION: Multilevel facet and disc degenerative changes in the thoracolumbar spine.No high-grade spinal canal or foraminal stenosis. Keny Villagran DO IMG MR XSPECIALTY Final Resu lt documented in this encounter Visit Diagnoses Diagnosis Radiculopathy, thoracolumbar region- Primary Radiculopathy, thoracolumbar region Radiculopathy, thoracolumbar region documented in this encounter Care Teams Personnel Consultant Relationship Specialty Start Date End Date Jessica Reyna NP [address] [place] [address] PCP - General Family Medicine 04/05/20 documented as of this encounter Additional Source Comments The information contained in this document represents components of the legal health record. It is not the complete legal health record.[facility]
[2025-08-22 01:15] LABS: Alanine Aminotransferase 26 U/L (0-31); Albumin Level 4.3 g/dL (3.5-5.0); Alkaline Phosphatase 55 U/L (39-117); Anion Gap 14 (12-20); Aspartate Amino Transferase 46 U/L (5-31); Blood Urea Nitrogen 23 mg/dL (9-16); Calcium 8.9 mg/dL (8.4-10.2); Carbon Dioxide 23 mmol/L (22-29); Chloride 102 mmol/L (96-108); Creatinine Clr Calc Pharmacy 64.9; Estimated Glomerular Filt Rate > 60; Magnesium 2.2 mg/dL (1.6-2.6); Potassium 4.3 mmol/L (3.3-5.1); Sodium 135 mmol/L (135-145); Total Protein 6.8 g/dL (6.5-8.0)
[2025-08-22 01:18] LABS: Troponin-I High Sensitivity 3.8 ng/L (<3.5-17.0)
[2025-08-22 01:43] LABS: NT Pro B Type Natriuretic Pept 166.9 pg/mL (<300)
[2025-08-22 02:36] LABS: Appearance Urine Clear; Glucose Urine UA Negative (Negative); PH 8.0 (5.0-9.0); Specific Gravity - Urine <= 1.005 (1.005-1.025); UMIC TRIGGER UA YES
--- NOTE | 2025-08-22 03:14 | ED.ARRPALP ---
HPI - Arrhythmia/Palpitations General Chief Complaint: Arrhythmia/Palpitations Stated Complaint: Palpitations Time Seen by Provider: 08/22/25 00:38 Source: patient and family Mode of arrival: ambulatory Limitations: no limitations History of Present Illness ED Provider: Dr. Kerri Cevallos HPI narrative: patient comes to the emergency room complaining of palpitations. Patient comes accompanied by her . According to the patient, today around 23:00, she started having palpitations and chest pressure with the chest pain. Patient states that last year around this time, she had a complete cardiac workup for similar symptoms and was admitted to the hospital. Patient states that her workup was negative. In this last year, she has had multiple episodes of recurring symptoms including dizziness, palpitations, chest pressure without chest pain. Never passed out. Patient states that today the symptoms did not go away and her has been urged her to come to the emergency room. Related Data Home Medications ?Medication ?Instructions ?Recorded ?Confirmed acetaminophen 500 mg tablet 500 mg PO DAILY PRN Pain 07/02/24 10/14/24 (Tylenol Extra Strength) calcium carbonate 500 mg PO DAILY 07/02/24 10/14/24 cholecalciferol (vitamin D3) 50 50 mcg PO DAILY 07/02/24 10/14/24 mcg (2,000 unit) tablet (Vitamin D3) levothyroxine 112 mcg tablet 112 mcg PO DAILY 07/02/24 10/14/24 (Synthroid) losartan 100 mg tablet 100 mg PO DAILY 07/02/24 10/14/24 metronidazole 0.75 % topical cream 1 appl topical BID PRN Rash 07/02/24 10/14/24 multivitamin 1 tab PO DAILY 07/02/24 10/14/24 atorvastatin 10 mg tablet 10 mg PO DAILY 10/14/24 10/14/24 Allergies Allergy/AdvReac Type Severity Reaction Status Date / Time No Known Allergies Allergy Verified 08/22/25 00:33 Review of Systems Review of Systems: Constitutional : No Weight loss, No Fever, No Chills, No Night Sweats, No Fatigue, No Malaise ENT/Mouth : No Hearing loss, No Ear Pain, No Nasal Congestion, No Sinus Pain, No Hoarseness, No sore throat, No Rhinorrhea, No Swallowing Difficulty Eyes: No Eye Pain, No Swelling, No Redness, No Foreign Body, No Discharge, No Vision Changes Cardiovascular : No Chest Pain, No SOB, No Dyspnea on Exertion, No Orthopnea, No Edema, complaining of palpitations Respiratory : No Cough, No Sputum, No Wheezing, No Smoke Exposure, No Dyspnea Gastrointestinal : No Nausea, No Vomiting, No Diarrhea, No Constipation, No abdominal Pain, No Hematochezia, No Melena Genitourinary : no irregular bleeding, No Dysuria, No Urinary Frequency, No Hematuria, No Urinary Incontinence, No Urgency, No Flank Pain, No Urinary Flow Changes, No Hesitancy Musculoskeletal : No joint pain, No Myalgias, No Joint Swelling Skin : No Skin Lesions, No rash Neuro : No Weakness, No Numbness, No Paresthesias, No Loss of Consciousness, No Dizziness, No Headache Psych : No Anxiety/Panic, No Depression, No SI/HI/AH/VH, No Social Issues, Heme/Lymph: No Bruising, No Bleeding,No Lymphadenopathy Endocrine : No Polyuria, No Polydipsia, No Temperature Intolerance PMFSH Past Medical History Medical History Overactive bladder Adult onset hypothyroidism Family History Family History Unknown No problems noted. Social History Social History Alcohol intake: current Patient Tobacco Use Status: Never used Tobacco Smoked in Last 30 Days: No Use of substances other than those prescribed or required for medical reasons: No Advance Directives: No Advance Directives Information Provided: Yes service: No Physical Exam Exam: Exam: Appearance: Alert. Oriented X3. No acute distress. Eyes: Pupils equal, round and reactive to light. ENT: Pharynx normal. Neck: Normal inspection. Neck supple. No lymph nodes noted. No crepitus CVS: heart rate irregularly regular in the 140s, Pulses normal. Normal S1 and S2 Respiratory: No respiratory distress. Breath sounds normal. No Wheezing. No rales Abdomen: Soft and nontender. No rigidity. No distention. Skin: Skin warm and dry. Normal skin color. Normal skin turgor. Extremities: No lower extremity edema. No Lacerations. No Rash Neuro: Oriented X 3. No motor deficit. No sensory deficit. Moving all extremities. No slurred speech. CN 2 through 12 grossly intact Psych: calm, cooperative, normal affect Vital Signs: Vital Signs: Last Vital Signs Temp 97.9 F 08/22/25 00:37 Pulse 115 H 08/22/25 03:06 Resp 18 08/22/25 03:06 BP 93/57 L 08/22/25 03:06 Pulse Ox 97 08/22/25 02:24 O2 Del Method Room Air 08/22/25 02:24 BMI result Body Mass Index 21.3 Course Course Course Narrative: patient comes in complaining of intermittent palpitations and chest pressure. However, today the palpitations did not subside Medications Administered Discontinued Medications Generic Name Dose Route Start Last Admin Trade Name Freq PRN Reason Stop Dose Admin Digoxin 0.125 mg 08/22/25 03:08 08/22/25 03:11 Digoxin 0.5 Mg/2 Ml Ampul IVPUSH 08/22/25 03:09 0.125 mg ONCE ONE Administration Protocol Sodium Chloride 1,000 mls @ 999 mls/hr 08/22/25 01:13 08/22/25 02:56 Ns IVCONT 08/22/25 02:13 Infused .Q1H1M ONE Infusion Metoprolol Tartrate 2.5 mg 08/22/25 01:13 08/22/25 01:19 Metoprolol Tartrate 5 Mg/5 Ml Vial IVPUSH 08/22/25 01:14 2.5 mg ONCE ONE Administration Protocol Medical Decision Making Medical Decision Making [facility] Narrative: my interpretation of EKG: Atrial fibrillation, heart rate 112, nonspecific ST changes in leads 2 and 3, QTC 439 my interpretation of labs: No significant acute abnormality in patient's hematology or chemistry. Labs at baseline. Troponin and NT pro BNP within normal limits. Patient's urinalysis has a small amount of leukocyte esterase, however, patient has no urinary symptoms. Antibiotics are not indicated at this time Patient is in atrial fibrillation with RVR, new for the patient. Patient's blood pressure 108 with a heart rate in the 120s to 140s. Patient does not seem dehydrated. However, the patient patient will receive IV fluids since, the heart rate control medications may drop her blood pressure. We will go slow with small doses. First dose 2.5 mg metoprolol. after the initial dose of metoprolol, patient's heart rate improved to the 100s. However, when patient moves or stands up, it shoots up to 130-140 again. Blood pressure in the mid 90s. Patient was given a dose of IV digoxin. patient's CHADS2 Vasc score is 3 points. Ideally, patient should be started on blood thinners, Eliquis versus Xarelto. I discussed with the patient's the risks versus benefits of blood thinners. Patient's is on Xarelto and she is aware. Patient states that at this time, she is not sure if she wants to be started on blood thinners because she is prone to falling. Patient states that she will think about this overnight. I discussed the above-mentioned with our hospitalist, patient being admitted. Differential Diagnosis Differential Diagnoses: The differential diagnosis associated with the presentation includes ( Atrial fibrillation, atrial flutter, SVT) Admission/Observation Consideration of admission/observation: Escalation of care including admission/observation considered Consult Healthcare Provider Management of the patient was discussed with: Hospitalist Lab Data MDM Lab Attestation statement: I reviewed the patient's lab results. 08/22/25 00:53 08/22/25 00:53 Labs: Lab Results 08/22/25 08/22/25 Range/Units 00:53 02:29 WBC 4.3 L (4.8-10.8) X10*3/uL RBC 3.64 L (4.20-5.50) X10*6/uL Hgb 12.8 (12.0-16.0) g/dl Hct 35.9 L (37.0-47.0) % MCV 98.6 H (80.0-98.0) fL MCH 35.2 H (27.0-33.0) pg MCHC 35.7 H (31.0-35.0) g/dl RDW 12.7 (11.0-16.0) % Plt Count 226 (160-400) X10*3/uL MPV 9.6 (9.4-12.3) fL Immature Gran % (Auto) 0.5 H (0.0-0.4) % Neut % (Auto) 55.4 (45-73) % Lymph % (Auto) 29.4 (20-40) % Door % (Auto) 12.6 H (2-11) % Eos % (Auto) 1.4 (0-4) % Baso % (Auto) 0.7 (0-2) % Lymph # (Auto) 1.3 (1.2-4.9) X10*3/uL Door # (Auto) 0.5 (0.1-1.2) X10*3/uL Eos # (Auto) 0.1 (0.0-0.4) X10*3/uL Baso # (Auto) 0.0 (0.0-0.2) X10*3/uL Abs Immat Gran (auto) 0.02 (0.00-0.03) X10*3/uL Absolute Neuts (auto) 2.4 (2.0-8.3) x10*3/uL Absolute Nucleated RBC 0.000 (0.0-0.012) X10*3/uL Nucleated RBC % (auto) 0.0 (0.0-0.2) /100WBC Sodium 135 (135-145) mmol/L Potassium 4.3 (3.3-5.1) mmol/L Chloride 102 (96-108) mmol/L Carbon Dioxide 23 (22-29) mmol/L Anion Gap 14 (12-20) BUN 23 H (9-16) mg/dL Creatinine 0.74 (0.5-1.4) mg/dL Estim Creat Clear Calc 64.9 Estimated GFR > 60 Random Glucose 89 (60-115) mg/dL Calcium 8.9 D (8.4-10.2) mg/dL Magnesium 2.2 (1.6-2.6) mg/dL Total Bilirubin 0.4 (0.0-1.0) mg/dL AST 46 H (5-31) U/L ALT 26 (0-31) U/L Alkaline Phosphatase 55 (39-117) U/L Troponin I High Sens 3.8 (<3.5-17.0) ng/L NT-Pro-B Natriuret Pep 166.9 (<300) pg/mL Total Protein 6.8 (6.5-8.0) g/dL Albumin 4.3 (3.5-5.0) g/dL Urine Color Yellow Urine Appearance Clear Urine pH 8.0 (5.0-9.0) Ur Specific [place] <= 1.005 (1.005-1.025) Urine Protein Negative (Neg-Trace) mg/dL Urine Glucose (UA) Negative (Negative) mg/dL Urine Ketones Negative (Negative) mg/dL Urine Blood Small (1+) H (Negative) Urine Nitrite Negative (Negative) Ur Leukocyte Esterase Small (1+) H (Negative) Urine RBC 3-5 H (0-2) /HPF Urine WBC 0-5 (0-5) /HPF Ur Squamous Epith Cells 0-2 (0-2) /HPF Urine Bacteria None Seen (None Seen) Hyaline Casts 0-2 (0-2) /LPF Independent Interpretation I performed an independent interpretation of an: EKG Independent Historian Clinical information obtained from an independent historian. History obtained from or confirmed by: Spouse Chronic Conditions Patient?s care impacted by: Other ( hypothyroidism, TSH/free T4 pending) Critical Care Time Critical Care Time Critical Care Time: Yes Total Critical Care Time: 60 Attestation: I have personally provided critical care time. Time includes review of lab data, radiology results, discussion with consultants, and monitoring for potential decompensation. Intervention performed as documented. Discharge Plan Discharge Clinical Impression: Atrial fibrillation with RVR Patient Disposition: Admitted As Inpatient
[2025-08-22] MEDS: Lactated Ringers 1,000 ML 999 ML IV (03:30)
--- NOTE | 2025-08-22 03:51 | PM.IMHP ---
History of Present Illness Date of Service: 08/22/25 Attending physician on admission: Porfirio Hughes Chief Complaint: Palpitations Jory Augustin is a 75 years old woman with past medical history significant for PMR on prednisone, essential hypertension, hyperlipidemia and hypothyroidism presents to the emergency department complaining of palpitation that started last night while she was sleeping. She also reported some chest pressure. She denied shortness on breath, headache, loss of consciousness, nausea, vomiting, diarrhea, cough, abdominal pain or pain with urination. She drinks 1 glass of wine weekly. Denied tobacco smoking or illicit drug use. She has similar episodes in the past and evaluated by operations accountant, Dr. Stahl, and no specific cause for her symptoms were found. She had a echocardiogram that showed normal ejection fraction and no significant valve disease. She also underwent a myocardial perfusion scan that came back normal. In the ED, she was found to have tachycardia consistent with atrial fibrillation. Last blood pressure is 116/70. There is no fever and oxygen saturation is normal on room air. Blood workup showed WBC of 4.3, hematocrit 35.9, hemoglobin 12.6 and platelets 226. There are no significant electrolyte imbalances. LFTs are essentially unremarkable except for slight elevation of AST. Pro BNP is 166.9, albumin 4.3 and TSH 0.94. ECG showed AFib with RVR, heart rate 112 beats per minute with nonspecific ST and T-wave abnormalities. ED Tx: Metoprolol 2.5 mg IV, diltiazem 5 mg IV, digoxin 0.25 mg IV, NS 1 L bolus. Review of Systems Review of Systems: All 12 systems were reviewed and normal except as noted in HPI. [facility] Medical History (Updated 08/22/25 @ 05:15 by Porfirio Hughes MD) Hyperlipidemia PMR (polymyalgia rheumatica) Hypothyroidism Essential hypertension Overactive bladder Adult onset hypothyroidism Family History Unknown No problems noted. Social History Alcohol intake: current Patient Tobacco Use Status: Never used Tobacco Smoked in Last 30 Days: No Use of substances other than those prescribed or required for medical reasons: No Advance Directives: No Advance Directives Information Provided: Yes service: No Meds Allergies Allergy/AdvReac Type Severity Reaction Status Date / Time No Known Allergies Allergy Verified 08/22/25 00:33 Active Medications: Current Medications Acetaminophen (Acetaminophen 325 Mg Tablet) 650 mg PO Q6H PRN PRN Reason: Pain, Mild 1-3,fever,headache Apixaban (Apixaban 5 Mg Tablet) 5 mg PO BID LEVAR Calcium Carbonate (Calcium Carbonate 750 Mg Tab.Chew) 750 mg PO Q4H PRN PRN Reason: Heartburn Lactated Ringer's (Lr) 1,000 mls @ 999 mls/hr IV .Q1H1M STA Stop: 08/22/25 04:21 Last Admin: 08/22/25 03:30 Dose: 999 mls/hr Magnesium Hydroxide (Milk Of Magnesia 30 Ml Oral.Susp) 30 ml PO DAILY PRN PRN Reason: Constipation Melatonin (Melatonin 3 Mg Tablet) 6 mg PO BEDTIME PRN PRN Reason: Insomnia Metoprolol Tartrate (Metoprolol Tartrate 12.5 Mg Halftab) 12.5 mg PO BID [facility]; Protocol Sodium Chloride (0.9 % Sodium Chloride Flush 3 Ml Syringe) 3 ml IVFLUSH QSHIFT [facility] Home Medications ?Medication ?Instructions ?Recorded ?Confirmed ?Last Taken ?Type acetaminophen 500 mg tablet 500 mg PO DAILY PRN Pain 07/02/24 10/14/24 Unknown History (Tylenol Extra Strength) calcium carbonate 500 mg PO DAILY 07/02/24 10/14/24 07/01/24 History cholecalciferol (vitamin D3) 50 50 mcg PO DAILY 07/02/24 10/14/24 07/01/24 History mcg (2,000 unit) tablet (Vitamin D3) levothyroxine 112 mcg tablet 112 mcg PO DAILY 07/02/24 10/14/24 07/02/24 History (Synthroid) losartan 100 mg tablet 100 mg PO DAILY 07/02/24 10/14/24 07/01/24 History metronidazole 0.75 % topical cream 1 appl topical BID PRN Rash 07/02/24 10/14/24 Unknown History multivitamin 1 tab PO DAILY 07/02/24 10/14/24 07/01/24 History atorvastatin 10 mg tablet 10 mg PO DAILY 10/14/24 10/14/24 Unknown History Physical Exam Vital Signs and Narrative: Vital Signs: Last Vital Signs Temp 97.9 F 08/22/25 03:32 Pulse 105 H 10/04/25 03:32 Resp 12 08/22/25 03:32 BP 116/70 08/22/25 03:32 Pulse Ox 97 08/22/25 03:32 O2 Del Method Room Air 08/22/25 03:32 BMI result Body Mass Index 21.3 General: Alert, oriented, in no acute distress. Well nourished and cooperative. Afebrile. HEENT: Head normocephalic, atraumatic. PER, EOMI. Sclerae anicteric, conjunctiva clear. Oropharynx without erythema or exudate. Mucous membranes moist. Neck: Supple, no lymphadenopathy, or JVD. Heart: Tachycardic, irregular rhythm, no murmurs, rubs or gallops. Lungs: Clear to auscultation bilaterally. No wheezes, rales, or rhonchi. Normal respiratory effort. Abdomen: Soft, non tenderness, nondistended, normoactive bowel sounds. No hepatosplenomegaly, masses, rebound or guarding. Extremities: No calf tenderness bilaterally, no swelling Musculoskeletal: Full range of motion. No joint swelling, deformity, or tenderness. Generalized atrophy. Skin: Warm/Dry. No pallor. No jaundice. Neurologic: Alert & oriented x4. Moving all extremities spontaneously. Normal speech. Psychological: Normal mood and affect. Thought process coherent. Results Labs 08/22/25 00:53 08/22/25 00:53 Labs: Laboratory Results - last 24 hr 08/22/25 08/22/25 00:53 02:29 MCV 98.6 H MCH 35.2 H MCHC 35.7 H RDW 12.7 Plt Count 226 MPV 9.6 Immature Gran % (Auto) 0.5 H Neut % (Auto) 55.4 Lymph % (Auto) 29.4 [place] % (Auto) 12.6 H Eos % (Auto) 1.4 Baso % (Auto) 0.7 Lymph # (Auto) 1.3 [place] # (Auto) 0.5 Eos # (Auto) 0.1 Baso # (Auto) 0.0 Abs Immat Gran (auto) 0.02 Absolute Neuts (auto) 2.4 Absolute Nucleated RBC 0.000 Nucleated RBC % (auto) 0.0 Anion Gap 14 Estim Creat Clear Calc 64.9 Estimated GFR > 60 Random Glucose 89 Calcium 8.9 D Magnesium 2.2 Total Bilirubin 0.4 AST 46 H ALT 26 Alkaline Phosphatase 55 Troponin I High Sens 3.8 NT-Pro-B Natriuret Pep 166.9 Total Protein 6.8 Albumin 4.3 Urine Color Yellow Urine Appearance Clear Urine pH 8.0 Ur Specific [place] <= 1.005 Urine Protein Negative Urine Glucose (UA) Negative Urine Ketones Negative Urine Blood Small (1+) H Urine Nitrite Negative Ur Leukocyte Esterase Small (1+) H Urine RBC 3-5 H Urine WBC 0-5 Ur Squamous Epith Cells 0-2 Urine Bacteria None Seen Hyaline Casts 0-2 Assessment and Plan (1) Atrial fibrillation with RVR: Status: Acute (2) Adult onset hypothyroidism: Status: Acute Plan Jory Augustin is a 75 y/o woman who presents with: Atrial fibrillation with RVR; improving (dilt IV, metoprolol IV, digoxin IV, per ED). Telemetry. Start metoprolol 12.5 mg p.o. b.i.d. and Eliquis 5 mg p.o. b.i.d. Discussed risk of bleeding, patient verbalized understanding and agrees to start anticoagulation therapy. Start PPI for GI protection as the patient takes prednisone. Recheck troponin. Check TTE. Cardiology consult. Essential hypertension. Continue losartan if BP allows (restart with caution as the pt has been started on metoprolol). Hyperlipidemia. Continue statin. Hypothyroidism. TSH is normal. Continue Synthroid 112 mcg p.o. daily. PMR. On low prednisone, 7 mg p.o. daily. To consider discontinuation if appropriate as the patient will be taking Eliquis; will decrease risk of bleedind. Code status: Full DVT prophylaxis: On Eliquis Patient will need hospitalization for at least 2 midnights for atrial fibrillation with a rapid brisk on treatment with continuous cardiac monitoring and vital signs: She also need rate control agents and evaluation by Cardiology. This documentation was generated using dictation software; minor spreading or audience development manager errors may be present. Quality Stroke Does the patient have a stroke diagnosis?: No VTE Prior VTE?: No VTE Risk Level:: Medical - moderate - high VTE Device Contraindication: Treatment Not Indicated VTE Drug Contraindication: N/A - Med Ordered
[2025-08-22] MEDS: Metoprolol Tartrate 12.5 MG HALFTAB PO ×3 (04:22→21:00)
--- NOTE | 2025-08-22 06:22 | HO.NURTONUR ---
Addendum entered by Kaylin Mohan RN 08/22/25 17:50: Pt rests comfortably for the majority of the day. Approx 1630: Pt noted to be hypotensive (87/63; 99/65) Pt is asymptomatic, no complaints offered. Attending made aware via [place] [facility] and new orders for NS @ 100ml/hr. Noted improvement in BP 100/63 and Pt reports feeling will. Will continue to monitor. Pt with family at bedside. Awaiting inpatient bed assignment. Original Note: Pt is 75 A&Ox4 female biba from home reporting around 2300 developed palpitations and chest pressure, EMS palced 20 Left AC and gave 500mL NS BUSINESS INTELLIGENCE ANALYST. On arrival to ED pt was in AFib RVR 130-140s with no reports of pain or pressure. 22g placed to Rt hand. Meds given in ED metoprolol, digoxin, 1L NS, 1L LR. up to bedside commode with assistance. Heart rate still 90-110s, however with excertion does go up to 120s. past medical history significant for PMR on prednisone, essential hypertension, hyperlipidemia and hypothyroidism
[2025-08-22 06:24] LABS: MANUAL DIFF FLAG NO
[2025-08-22 06:32] LABS: Hematocrit 34.8 % (37.0-47.0); Hemoglobin 11.8 g/dl (12.0-16.0); Imm Gran Abs Auto 0.01 X10*3/uL (0.00-0.03); Imm Gran Pct Auto 0.3 % (0.0-0.4); Lymphocytes Absolute Auto 0.8 X10*3/uL (1.2-4.9); Mean Corpuscular HGB Conc 33.9 g/dl (31.0-35.0); Mean Corpuscular Hemoglobin 34.4 pg (27.0-33.0); Mean Corpuscular Volume 101.5 fL (80.0-98.0); NRBC Abs Auto 0.000 X10*3/uL (0.0-0.012); NRBC Pct Auto 0.0 /100WBC (0.0-0.2); Platelet Count 217 X10*3/uL (160-400); Red Blood Count 3.43 X10*6/uL (4.20-5.50); White Blood Count 3.2 X10*3/uL (4.8-10.8)
[2025-08-22 06:47] LABS: Troponin-I High Sensitivity 27.8 ng/L (<3.5-17.0)
[2025-08-22 06:50] LABS: Anion Gap 9 (12-20); Blood Urea Nitrogen 16 mg/dL (9-16); Calcium 8.7 mg/dL (8.4-10.2); Carbon Dioxide 29 mmol/L (22-29); Chloride 108 mmol/L (96-108); Creatinine Clr Calc Pharmacy 68.5; Estimated Glomerular Filt Rate > 60; Magnesium 1.9 mg/dL (1.6-2.6); Potassium 4.2 mmol/L (3.3-5.1); Sodium 142 mmol/L (135-145)
[2025-08-22 07:15] LABS: Folate 12.4 ng/mL (> or = 4.0); Vitamin B12 600 pg/mL (200-900)
--- NOTE | 2025-08-22 07:19 | P.PNIM_ITS ---
Subjective Subjective Date of Service: 08/22/25 Interval History: Continues to have AFib with RVR with soft blood pressures We will load with digoxin and initiate maintenance digoxin Anticoagulation with Eliquis We will likely need outpatient follow-up for cardioversion outpatient after 4-6 weeks of anticoagulation given unclear etiology/chronicity of AFib with RVR Resumed her home steroids for PMR with very extended and slow release taper-1 mg every month Patient's at the bedside Review of Systems Review of Systems: Yes all other systems are reviewed and are negative Physical Exam 2 Exam: Exam: General: AOx3, no acute distress Resp: CTA bilaterally CVS: S1, S2, irregularly irregular rhythm, with rapid heart rate up to 110s GI: +BS, NT, no distention Skin: Warm, dry Neuro: Cranial nerves II-XII grossly intact bilaterally. Motor grossly intact bilaterally Extremities: No edema Psych: Appropriate affect Vital Signs: Vital Signs: Last Vital Signs Temp 97.9 F 08/22/25 03:32 Pulse 105 H 08/22/25 03:32 Resp 12 08/22/25 03:32 BP 116/70 08/22/25 03:32 Pulse Ox 97 08/22/25 03:32 O2 Del Method Room Air 08/22/25 03:32 BMI result Body Mass Index 21.3 Objective Data Active Medications Acetaminophen (Acetaminophen 325 Mg Tablet) 650 mg PO Q6H PRN PRN Reason: Pain, Mild 1-3,fever,headache Apixaban (Apixaban 5 Mg Tablet) 5 mg PO BID [facility] Last Admin: 08/22/25 04:23 Dose: 5 mg Documented By: BEAU Calcium Carbonate (Calcium Carbonate 750 Mg Tab.Chew) 750 mg PO Q4H PRN PRN Reason: Heartburn Magnesium Hydroxide (Milk Of Magnesia 30 Ml Oral.Susp) 30 ml PO DAILY PRN PRN Reason: Constipation Melatonin (Melatonin 3 Mg Tablet) 6 mg PO BEDTIME PRN PRN Reason: Insomnia Metoprolol Tartrate (Metoprolol Tartrate 12.5 Mg Halftab) 12.5 mg PO BID [facility]; Protocol Omeprazole (Omeprazole 40 Mg Capsule.Dr) 40 mg PO DAILY@0630 [facility] Last Admin: 08/22/25 05:47 Dose: 40 mg Documented By: BEAU Sodium Chloride (0.9 % Sodium Chloride Flush 3 Ml Syringe) 3 ml IVFLUSH QSHIFT [facility] Labs 08/22/25 06:03 08/22/25 06:03 Labs: Laboratory Results - last 24 hr 08/22/25 08/22/25 08/22/25 00:53 02:29 06:03 MCV 98.6 H 101.5 H MCH 35.2 H 34.4 H MCHC 35.7 H 33.9 RDW 12.7 12.8 Plt Count 226 217 MPV 9.6 9.7 Immature Gran % (Auto) 0.5 H 0.3 Neut % (Auto) 55.4 59.0 Lymph % (Auto) 29.4 25.5 [place] % (Auto) 12.6 H 13.4 H Eos % (Auto) 1.4 1.2 Baso % (Auto) 0.7 0.6 Lymph # (Auto) 1.3 0.8 L [place] # (Auto) 0.5 0.4 Eos # (Auto) 0.1 0.0 Baso # (Auto) 0.0 0.0 Abs Immat Gran (auto) 0.02 0.01 Absolute Neuts (auto) 2.4 1.9 L Absolute Nucleated RBC 0.000 0.000 Nucleated RBC % (auto) 0.0 0.0 Anion Gap 14 9 L Estim Creat Clear Calc 64.9 68.5 Estimated GFR > 60 > 60 Random Glucose 89 92 Calcium 8.9 D 8.7 Magnesium 2.2 1.9 Total Bilirubin 0.4 AST 46 H ALT 26 Alkaline Phosphatase 55 Troponin I High Sens 3.8 27.8 H D NT-Pro-B Natriuret Pep 166.9 Total Protein 6.8 Albumin 4.3 Vitamin B12 600 Folate 12.4 TSH 0.95 Urine Color Yellow Urine Appearance Clear Urine pH 8.0 Ur Specific [place] <= 1.005 Urine Protein Negative Urine Glucose (UA) Negative Urine Ketones Negative Urine Blood Small (1+) H Urine Nitrite Negative Ur Leukocyte Esterase Small (1+) H Urine RBC 3-5 H Urine WBC 0-5 Ur Squamous Epith Cells 0-2 Urine Bacteria None Seen Hyaline Casts 0-2 Assessment and Plan (1) Atrial fibrillation with RVR: Status: Acute Assessment and Plan: Patient is a very sweet 75-year-old female with PMH notable for PMR on very slow extended prednisone taper, essential hypertension, HLD, hypothyroidism who presented with palpitations not resolved and presented to the ED and was noted to have AFib with RVR with unknown chronicity. Cardiac workup revealed AFib. She was treated with digoxin, diltiazem and metoprolol, continues to have poor rate control New onset AFib with RVR, unknown chronicity initiated rate control and Eliquis this admission CAD HLD Thankfully remains asymptomatic without any recurrence of chest pain Start with digoxin loading dose and maintenance dose and likely we will need echo outpatient Tele monitoring Aggressive electrolytes check and replete to goal especially with digoxin Rate control with metoprolol we will start with lower dose Rhythm control with digoxin Anticoagulation with the Eliquis-started this admission Outpatient echo and cardioversion if not reverted in 3-4 weeks Cardiology consulted-appreciate the recommendations PMR -Patient is now on 7 mg taper for the month of August GERD -Omeprazole Hypothyroidism continue home levothyroxine . DVT prophylaxis with Eliquis which has been initiated this admission This note is constructed using voice recognition software. While every effort has been made to ensure accuracy, benefit specialist errors may have been included. Quality Stroke Does the patient have a stroke diagnosis?: No VTE Prior VTE?: No VTE Risk Level:: Medical - moderate - high VTE Device Contraindication: Treatment Not Indicated VTE Drug Contraindication: N/A - Med Ordered
[2025-08-22] MEDS: 0.9 % Sodium Chloride Flush 3 ML SYRINGE IVFLUSH ×3 (08:11→21:00)
--- NOTE | 2025-08-22 08:15 | PC.NURSE ---
Pharmacy at bedside for Med Rec
--- NOTE | 2025-08-22 08:49 | PHA.MEDREC ---
Pharmacy Consult ? Medication Reconciliation Pharmacy has completed the medication reconciliation. MED REC DONE. SPOKE TO PATIENT AND SHE WAS ABLE TO PROVIDE NAMES AND DOSES OF ALL MEDICATIONS. SHE IS ON A VERY LONG PREDNISONE TAPER FOR TREATMENT OF PML. SHE WILL BE REDUCING BY 1 MG MONTHLY. FOR THE MONTH OF AUGUST SHE IS TAKING 7 MG DAILY. IN SEPTEMBER WILL REDUCE TO 6 MG.
--- NOTE | 2025-08-22 10:04 | P.CONCA_ITS ---
History of Present Illness History of Present Illness Date of Service: 08/22/25 Chief complaint: Atrial Fibrillation w/ rapid ventricular response Narrative: This is a cardiology consultation regarding atrial fibrillation rapid ventricular response. She was seen in our clinic last year. At that time, she had described some chest pressure, shortness of breath and palpitations. She underwent a comprehensive workup including echocardiogram, stress test and coronary CTA. Was diagnosed to have just mild coronary artery disease. In the current time, she is presenting for palpitations and EKG had shown atrial fibrillation rapid ventricular response. She has been given some diltiazem, metoprolol and digoxin and then subsequently admitted for further care. Review of Systems 2 Review of Systems: Yes all other systems are reviewed and are negative Constitutional: Constitutional: Reports as per HPI and Reports no additional constitutional complaints Eyes: Eyes: Reports as per HPI and Denies no additional eye complaints ENT: Denies system reviewed and no additional complaints, except as documented and Reports as per HPI Cardiovascular: Cardiovascular: Reports as per HPI, Reports no additional cardiovascular complaints, Denies acrocyanosis, Denies cool extremities, Denies chest pain, Denies leg edema, Denies lightheadedness, Reports palpitations and Denies dyspnea Respiratory: Respiratory: Reports as per HPI, Denies no additional respiratory complaints and Denies dyspnea Gastrointestinal: Gastrointestinal: Reports as per HPI and Denies no additional gastrointestinal complaints Genitourinary: Genitourinary: Reports as per HPI Musculoskeletal: Musculoskeletal: Reports no additional musculoskeletal complaints and Reports as per HPI Integumentary/Breasts: Skin/Breast: Reports system reviewed and no additional complaints, except as docu Neurologic: Reports system reviewed and no additional complaints, except as documented and Reports as per HPI Psychiatric: Psychiatric: Reports no additional psychiatric complaints and Reports as per HPI Endocrine: Endocrine: Reports no additional endocrine complaints, Reports as per HPI and Reports palpitations Hematologic/Lymphatic: Hematologic/Lymphatic: Reports no additional hematologic/lymphatic complaints and Reports as per HPI Allergic/Immunologic: Allergic/Immunologic: Reports no additional allergic/immunologic complaints and Reports as per HPI [facility] Past Medical History Medical History (Updated 08/22/25 @ 05:15 by Porfirio Hughes MD) Hyperlipidemia PMR (polymyalgia rheumatica) Hypothyroidism Essential hypertension Overactive bladder Adult onset hypothyroidism Family History Family History Unknown No problems noted. Social History Social History Alcohol intake: current Patient Tobacco Use Status: Never used Tobacco Smoked in Last 30 Days: No Use of substances other than those prescribed or required for medical reasons: No Advance Directives: No Advance Directives Information Provided: Yes service: No Meds Allergies Allergy/AdvReac Type Severity Reaction Status Date / Time No Known Allergies Allergy Verified 08/22/25 00:33 Active Medications: Current Medications Acetaminophen (Acetaminophen 325 Mg Tablet) 650 mg PO Q6H [facility] Apixaban (Apixaban 5 Mg Tablet) 5 mg PO BID [facility] Last Admin: 08/22/25 04:23 Dose: 5 mg Atorvastatin Calcium (Atorvastatin Calcium 10 Mg Tablet) 10 mg PO BEDTIME LEVAR Calcium Carbonate (Calcium Carbonate 750 Mg Tab.Chew) 750 mg PO Q4H PRN PRN Reason: Heartburn Calcium Carbonate (Calcium Oyster Shell Elemental 500 Mg Tablet) 500 mg PO DAILY [facility] Digoxin (Digoxin 0.25 Mg Tablet) 0.25 mg PO Q6H [facility]; Protocol Stop: 08/22/25 21:46 Digoxin (Digoxin 0.125 Mg Tablet) 0.125 mg PO DAILY [facility]; Protocol Levothyroxine Sodium (Levothyroxine Sodium 112 Mcg Tablet) 112 mcg PO MOTUWETHFRSA@0600 [facility] Magnesium Hydroxide (Milk Of Magnesia 30 Ml Oral.Susp) 30 ml PO DAILY PRN PRN Reason: Constipation Melatonin (Melatonin 3 Mg Tablet) 6 mg PO BEDTIME PRN PRN Reason: Insomnia Metoprolol Tartrate (Metoprolol Tartrate 12.5 Mg Halftab) 12.5 mg PO BID [facility]; Protocol Multivitamins/Vitamin C (Multivitamin Tablet) 1 tab PO DAILY [facility] Omeprazole (Omeprazole 40 Mg Capsule.Dr) 40 mg PO DAILY@0630 [facility] Last Admin: 08/22/25 05:47 Dose: 40 mg Prednisone (Prednisone 5 Mg Tablet) 5 mg PO DAILY [facility] Prednisone (Prednisone 1 Mg Tablet) 2 mg PO DAILY [facility] Sodium Chloride (0.9 % Sodium Chloride Flush 3 Ml Syringe) 3 ml IVFLUSH QSHIFT [facility] Last Admin: 08/22/25 08:11 Dose: 3 ml Vitamin D (Cholecalciferol (Vitamin D3) 25 Mcg Tablet) 50 mcg PO DAILY [facility] Home Medications ?Medication ?Instructions ?Recorded ?Confirmed ?Last Taken ?Type acetaminophen 500 mg tablet 500 mg PO BID PRN Pain 08/22/25 08/21/25 History (Tylenol Extra Strength) calcium carbonate 500 mg PO DAILY 07/02/2403/1308/21/25 History cholecalciferol (vitamin D3) 50 50 mcg PO DAILY 08/22/25 08/21/25 History mcg (2,000 unit) tablet (Vitamin D3) levothyroxine 112 mcg tablet 112 mcg PO MOTUWETHFRSA@0 600 07/02/24 08/22/25 08/21/25 History (Synthroid) losartan 100 mg tablet 100 mg PO DAILY 07/02/2403/1308/21/25 History multivitamin 1 tab PO DAILY 07/02/2403/1308/21/25 History atorvastatin 10 mg tablet 10 mg PO BEDTIME 10/14/2408/21/25 History magnesium 250 mg tablet 250 mg PO DAILY 08/22/2503/1308/21/25 History metronidazole 0.75 % topical cream 1 appl topical SONAL Y 08/22/25 08/22/25 Unknown History omeprazole 40 mg capsule,delayed 40 mg PO DAILY@0630 1 08/22/25 08/22/25 History release prednisone 1 mg tablet 2 mg PO DAILY 08/22/2508/2208/21/25 History prednisone 5 mg tablet 5 mg PO DAILY 08/22/2508/2208/21/25 History Physical Exam 2 Vital Signs: Vital Signs: Last Vital Signs Temp 97.8 F 08/22/25 08:44 Pulse 97 08/22/25 08:44 Resp 17 08/22/25 08:44 BP 95/50 L 08/22/25 08:50 Pulse Ox 100 08/22/25 08:44 O2 Del Method Room Air 08/22/25 08:44 BMI result Body Mass Index 21.3 Const: General: comfortable and no acute distress O rientation/consciousness: patient oriented x3 HEENT: Other: Unremarkable Head: Yes normal to inspection Neck: Neck: Yes normal visual inspection Chest: Chest palpation & inspection: normal inspection of the chest Resp: Auscultation: clear to auscultation bilaterally Cardio: Palpation: normal PMI Heart sounds: S1 normal heart sound present, S2 normal heart sound present, no gallops, no murmurs and no rubs GI: Palpation (GI): Soft to palpation Back/Spine/Pelvis: Other: unremarkable Skin: General skin exam: no rashes or lesions noted Neuro: General: patient oriented x3 Extrem: General: Yes normal to inspection Psych: Mental Status: mental status grossly normal Objective Labs and Meds 08/22/25 06:03 08/22/25 06:03 Lab results: Laboratory Results - last 24 hr 08/22/25 08/22/25 08/22/25 00:53 02:29 06:03 WBC 4.3 L 3.2 L RBC 3.64 L 3.43 L Hgb 12.8 11.8 L Hct 35.9 L 34.8 L MCV 98.6 H 101.5 H MCH 35.2 H 34.4 H MCHC 35.7 H 33.9 RDW 12.7 12.8 Plt Count 226 217 MPV 9.6 9.7 Immature Gran % (Auto) 0.5 H 0.3 Neut % (Auto) 55.4 59.0 Lymph % (Auto) 29.4 25.5 [place] % (Auto) 12.6 H 13.4 H Eos % (Auto) 1.4 1.2 Baso % (Auto) 0.7 0.6 Lymph # (Auto) 1.3 0.8 L [place] # (Auto) 0.5 0.4 Eos # (Auto) 0.1 0.0 Baso # (Auto) 0.0 0.0 Abs Immat Gran (auto) 0.02 0.01 Absolute Neuts (auto) 2.4 1.9 L Absolute Nucleated RBC 0.000 0.000 Nucleated RBC % (auto) 0.0 0.0 Sodium 135 142 Potassium 4.3 4.2 Chloride 102 108 Carbon Dioxide 23 29 Anion Gap 14 9 L BUN 23 H 16 Creatinine 0.74 0.70 Estim Creat Clear Calc 64.9 68.5 Estimated GFR > 60 > 60 Random Glucose 89 92 Calcium 8.9 D 8.7 Magnesium 2.2 1.9 Total Bilirubin 0.4 AST 46 H ALT 26 Alkaline Phosphatase 55 Troponin I High Sens 3.8 27.8 H D NT-Pro-B Natriuret Pep 166.9 Total Protein 6.8 Albumin 4.3 Vitamin B12 600 Folate 12.4 TSH 0.95 Urine Color Yellow Urine Appearance Clear Urine pH 8.0 Ur Specific [place] <= 1.005 Urine Protein Negative Urine Glucose (UA) Negative Urine Ketones Negative Urine Blood Small (1+) H Urine Nitrite Negative Ur Leukocyte Esterase Small (1+) H Urine RBC 3-5 H Urine WBC 0-5 Ur Squamous Epith Cells 0-2 Urine Bacteria None Seen Hyaline Casts 0-2 ECG Interpretation: EKG with atrial fibrillation at a rate of 112/Min. Nonspecific ST-T changes. Assessment and Plan (1) Atrial fibrillation with RVR: Status: Acute Plan Echocardiogram last year had shown EF of 63%. Mild tricuspid regurgitation. Unclear if he truly had atrial fibrillation all this while or if it is a new finding. Any case, we will need to achieve rate control. As the blood pressure is somewhat low, used digoxin for rate control. We can do a loading dose followed by maintenance. Low-dose beta-blockers as allowed by blood pressure. Anticoagulation with Eliquis. If she remains in atrial fibrillation, plan on cardioversion after 3-4 weeks of appropriate anticoagulation. We will follow up with you. Procedures Date of Service Date of Service: 08/22/25
[2025-08-23 03:22] VITALS: BP 114/67; PULSE 73; RESP 18; TEMP 36.4; O2SAT 97
--- NOTE | 2025-08-23 07:29 | HO.PM.IMPN ---
Subjective Subjective Date of Service: 08/23/25 Physical Exam Vital Signs: Vital Signs: Last Vital Signs Temp 97.5 F 08/23/25 03:22 Pulse 73 08/23/25 03:22 Resp 18 08/23/25 03:22 BP 114/67 08/23/25 03:22 Pulse Ox 97 08/23/25 03:22 O2 Del Method Room Air 08/23/25 03:22 BMI result Body Mass Index 21.5 Objective Data Active Medications Acetaminophen (Acetaminophen 325 Mg Tablet) 650 mg PO Q6H [facility] Last Admin: 08/23/25 04:29 Dose: 650 mg Documented By: ROLANDO Apixaban (Apixaban 5 Mg Tablet) 5 mg PO BID [facility] Last Admin: 08/22/25 21:00 Dose: 5 mg Documented By: ROLANDO Atorvastatin Calcium (Atorvastatin Calcium 10 Mg Tablet) 10 mg PO BEDTIME [facility] Last Admin: 08/22/25 20:59 Dose: 10 mg Documented By: ROLANDO Calcium Carbonate (Calcium Carbonate 750 Mg Tab.Chew) 750 mg PO Q4H PRN PRN Reason: Heartburn Calcium Carbonate (Calcium Oyster Shell Elemental 500 Mg Tablet) 500 mg PO DAILY [facility] Digoxin (Digoxin 0.125 Mg Tablet) 0.125 mg PO BID [facility]; Protocol Last Admin: 08/22/25 20:59 Dose: 0.125 mg Documented By: ROLANDO Sodium Chloride (Ns) 1,000 mls @ 100 mls/hr IVCONT .Q10H [facility] Last Admin: 08/23/25 02:00 Dose: 100 mls/hr Documented By: ROLANDO Levothyroxine Sodium (Levothyroxine Sodium 112 Mcg Tablet) 112 mcg PO MOTUWETHFRSA@0600 [facility] Magnesium Hydroxide (Milk Of Magnesia 30 Ml Oral.Susp) 30 ml PO DAILY PRN PRN Reason: Constipation Melatonin (Melatonin 3 Mg Tablet) 6 mg PO BEDTIME PRN PRN Reason: Insomnia Metoprolol Tartrate (Metoprolol Tartrate 12.5 Mg Halftab) 12.5 mg PO BID [facility]; Protocol Last Admin: 08/22/25 21:00 Dose: 12.5 mg Documented By: ROLANDO Multivitamins/Vitamin C (Multivitamin Tablet) 1 tab PO DAILY [facility] Omeprazole (Omeprazole 40 Mg Capsule.Dr) 40 mg PO DAILY@0630 [facility] Last Admin: 08/23/25 06:10 Dose: 40 mg Documented By: ROLANDO Prednisone (Prednisone 5 Mg Tablet) 5 mg PO DAILY [facility] Prednisone (Prednisone 1 Mg Tablet) 2 mg PO DAILY [facility] Sodium Chloride (0.9 % Sodium Chloride Flush 3 Ml Syringe) 3 ml IVFLUSH QSHIFT [facility] Last Admin: 08/22/25 21:00 Dose: 3 ml Documented By: ROLANDO Vitamin D (Cholecalciferol (Vitamin D3) 25 Mcg Tablet) 50 mcg PO DAILY [facility] Labs 08/22/25 06:03 08/22/25 06:03 Labs: Laboratory Results - last 24 hr 08/22/25 06:03 Smear Path Review Cancelled Quality Stroke Does the patient have a stroke diagnosis?: No VTE Prior VTE?: No VTE Risk Level:: Medical - moderate - high VTE Device Contraindication: Treatment Not Indicated VTE Drug Contraindication: N/A - Med Ordered
[2025-08-23 07:36] VITALS: BP 105/61; PULSE 79; RESP 20; TEMP 36.4; O2SAT 100
[2025-08-23] MEDS: Metoprolol Tartrate 12.5 MG HALFTAB PO (08:04)
[2025-08-23] MEDS: 0.9 % Sodium Chloride Flush 3 ML SYRINGE IVFLUSH (08:05)
[2025-08-23] MEDS: Calcium Oyster Shell Elemental 500 MG TABLET PO (08:05)
--- NOTE | 2025-08-23 09:05 | MHC.CM.PN ---
IMM 08/23/25, Pt. lives with her , Chino, who is also her HCP. PCP is AYO Lee at [facility]. Pt. does not use home health services, she does have DME, of grab bars, and tub bench. to transport home at DC, DCP: home, self care. CM to follow for DC needs.
--- NOTE | 2025-08-23 10:52 | PM.DS ---
DS: Providers Provider Date of Service: 08/23/25 Date of admission: 08/22/25 03:19 Date of discharge: 08/23/25 Primary care physician: Unknown Physician Consults: 08/22/25 03:23 Consult to Cardiology Routine Consulting Provider: [facility] Reason for consultation: Rapid AFib with RVR, new onset Has provider been notified: No DS: Diagnosis Discharge Diagnosis (1) Atrial fibrillation with RVR: Status: Acute DS: Summary Hospital Course Hospital Course: New onset AFib with RVR, unknown chronicity initiated rate control , rhythm and anticoagulation this admission, outpatient follow-up with Cardiology arranged LVEF 63% Mild TR CAD HLD Patient is a very sweet 75-year-old female with PMH notable for PMR on very slow extended prednisone taper, essential hypertension, HLD, hypothyroidism who presented with palpitations not resolved and presented to the ED and was noted to have AFib with RVR with unknown chronicity. Cardiac workup revealed AFib. She was treated with digoxin, diltiazem and metoprolol, continues to have poor rate control. Hence Cardiology was consulted. She was started on digoxin, low-dose beta-bronwyn and started her on Eliquis. Given her soft blood pressures, we have stopped losartan. Patient advised to not take anymore losartan. Patient had questions about digoxin toxicity-which has been answered to the patient and her satisfaction. Also educational material given regarding digoxin toxicity. Advised the patient to follow up with primary care and cardiology outpatient to monitor levels of digoxin and electrolytes. She is to get outpatient echo and if she sustains to be in AFib, she will likely undergo cardioversion in 4-6 weeks. Outpatient Cardiology follow-up arranged. PMR -Patient is now on 7 mg taper for the month of August , slow 1 mg taper every month. Follow-up with Rheumatology GERD -follow-up Omeprazole Hypothyroidism continue home levothyroxine . DVT prophylaxis with Eliquis which has been initiated this admission This note is constructed using voice recognition software. While every effort has been made to ensure accuracy, critical care nurse practitioner errors may have been included. Time spent discussing smoking cessation with patient: more than 10 minutes Time Attestation Discharge Coordination Time (in mins): 35 Quality: Safe Use of Opioids Does Pt have an Active Cancer Diagnosis on the Problem List?: No Quality: Stroke Does the patient have a stroke diagnosis?: No Physical Exam Vital Signs: Vital Signs: Last Vital Signs Temp 97.6 F 08/23/25 07:36 Pulse 79 08/23/25 07:36 Resp 20 08/23/25 07:36 BP 105/61 08/23/25 07:36 Pulse Ox 100 08/23/25 07:36 O2 Del Method Room Air 08/23/25 07:36 BMI result Body Mass Index 21.5 DS: Data Data Completed and Pending Labs on day of discharge: Laboratory Results - last 24 hr 08/22/25 06:03 Smear Path Review Cancelled Discharge Plan Discharge Anticipated Discharge Date/Time: 08/23/25 10:44 Patient Disposition: Home, Self-Care Discharge Diagnosis: New onset Afib with RVR Referrals: Physician,Unknown J [Primary Care Provider, Medical] - 1 Week Discharge Medications: New Eliquis 5 mg Tablet 5 mg PO BID 30 Days Qty: 60 0RF metoprolol succinate 25 mg tablet extended release 24 hr 25 mg PO DAILY Qty: 30 3RF digoxin 125 mcg (0.125 mg) tablet 125 mcg PO DAILY Qty: 30 3RF Continued prednisone 5 mg tablet 5 mg PO DAILY Rx Instructions: TDD 7 MG prednisone 1 mg tablet 2 mg PO DAILY Rx Instructions: TDD 7 MG omeprazole 40 mg Capsule,Delayed Release(Dr/Ec) 40 mg PO DAILY@0630 metronidazole 0.75 % Cream 1 appl TOPICAL DAILY Protocol: Apply to: Apply to: ROSACEA magnesium 250 mg Tablet 250 mg PO DAILY multivitamin Tablet 1 tab PO DAILY acetaminophen [Tylenol Extra Strength] 500 mg Tablet 500 mg PO BID PRN (Reason: Pain) calcium carbonate 500 mg calcium (1,250 mg) Tablet 500 mg PO DAILY levothyroxine [Synthroid] 112 mcg Tablet 112 mcg PO MOTUWETHFRSA@0600 cholecalciferol (vitamin D3) [Vitamin D3] 50 mcg (2,000 unit) Tablet 50 mcg PO DAILY atorvastatin 10 mg tablet 10 mg PO BEDTIME Discontinued losartan 100 mg tablet 100 mg PO DAILY Discharge Orders: Discharge Order (Routine); Ordered 08/23/25 Ordered By: Ailyn Adamson Diet: Low salt diet Activity on Discharge: As tolerated Stand Alone Forms: Patient Portal Discharge page Print Language: Italian Care Plan Goals: F/up with PCP , Cardiology OP Check BMP in 2 days to ensure adequate electrolyte Health Concerns: Afib rx education given at bedside Plan of Treatment: Digoxin LD given POA, now on maintainence for rhythm control , Metoprolol succ low dose initated for rate control, Eliquis for OAC, see Cardiology in 1 week post DC Assessment: See above Patient Instructions: Metoprolol (By mouth), Digoxin (By mouth), Apixaban (By mouth) (Eliquis), Digoxin Toxicity (GEN)
--- NOTE | 2025-08-23 11:06 | PM.PNCARD ---
Subjective Subjective Date of Service: 08/23/25 Interval history: Patient states she is feeling better. Heart rate seems improved. Review of Systems Review of Systems Yes all other systems are reviewed and are negative Constitutional: Reports as per HPI and Reports no additional constitutional complaints Eyes: Reports as per HPI and Denies no additional eye complaints Denies system reviewed and no additional complaints, except as documented and Reports as per HPI Cardiovascular: Reports as per HPI, Reports no additional cardiovascular complaints, Denies acrocyanosis, Denies cool extremities, Denies chest pain, Denies leg edema, Denies lightheadedness, Denies palpitations and Denies dyspnea Respiratory: Reports as per HPI, Denies no additional respiratory complaints and Denies dyspnea Gastrointestinal: Reports as per HPI and Denies no additional gastrointestinal complaints Genitourinary: Reports as per HPI Musculoskeletal: Reports no additional musculoskeletal complaints and Reports as per HPI Skin/Breast: Reports system reviewed and no additional complaints, except as docu Reports system reviewed and no additional complaints, except as documented and Reports as per HPI Psychiatric: Reports no additional psychiatric complaints and Reports as per HPI Endocrine: Reports no additional endocrine complaints, Reports as per HPI and Denies palpitations Hematologic/Lymphatic: Reports no additional hematologic/lymphatic complaints and Reports as per HPI Allergic/Immunologic: Reports no additional allergic/immunologic complaints and Reports as per HPI Physical Exam Vital Signs: Last Vital Signs Temp 97.6 F 08/23/25 07:36 Pulse 79 08/23/25 07:36 Resp 20 08/23/25 07:36 BP 105/61 08/23/25 07:36 Pulse Ox 100 08/23/25 07:36 O2 Del Method Room Air 08/23/25 07:36 BMI result Body Mass Index 21.5 Const General: comfortable and no acute distress Orientation/consciousness: patient oriented x3 HEENT Other: Unremarkable Head: Yes normal to inspection Neck Neck: Yes normal visual inspection Chest Chest palpation & inspection: normal inspection of the chest Resp Auscultation: clear to auscultation bilaterally Cardio Palpation: normal PMI Heart sounds: S1 normal heart sound present, S2 normal heart sound present, no gallops, no murmurs and no rubs GI Palpation (GI): Soft to palpation Back/Spine/Pelvis Other: unremarkable Skin General skin exam: no rashes or lesions noted Neuro General: patient oriented x3 Extrem General: Yes normal to inspection Psych Mental Status: mental status grossly normal Objective Labs and Meds 08/22/25 06:03 08/22/25 06:03 Lab results: Laboratory Results - last 24 hr 08/22/25 06:03 Smear Path Review Cancelled Progress Note: A&P Assessment and plan (1) Atrial fibrillation with RVR: Status: Acute Plan Echocardiogram last year had shown EF of 63%. Mild tricuspid regurgitation. Unclear if he truly had atrial fibrillation all this while or if it is a new finding. We can do low-dose beta-blockers and hold off the home dose of Losartan. Digoxin. Anticoagulation. On telemetry, atrial fibrillation ventricular rate in the 70s to 80s. Overall, improved. We will arrange outpatient follow-up. Time Spent With Patient Time: Total time managing care of this patient today ____ minutes. Progress Note: Quality Stroke Does the patient have a stroke diagnosis?: No Procedures Date of Service Date of Service: 08/23/25
[2025-08-23 11:41] VITALS: BP 97/65; PULSE 80; RESP 20; TEMP 36.6; O2SAT 100
== END 2025-08-23 13:57 | disposition home or self-care (01) | DRG 310 ==
LOC: HO.ED 01:08 → HO.EDOVER 03:24 → HO.IMC 19:18
PROVIDERS: Admitting Provider Internal Medicine; Emergency Provider Emergency Medicine; PCP Registered Nurse; Visit Provider Student in an Organized Health Care Education/Training Program
DX: I48.91 Unspecified atrial fibrillation (principal); I10 Essential (primary) hypertension; E78.5 Hyperlipidemia, unspecified; E03.9 Hypothyroidism, unspecified; M35.3 Polymyalgia rheumatica; I07.1 Rheumatic tricuspid insufficiency; K21.9 Gastro-esophageal reflux disease without esophagitis; I25.10 Atherosclerotic heart disease of native coronary artery without angina pectoris; Z87.891 Personal history of nicotine dependence; Z79.52 Long term (current) use of systemic steroids; Z79.890 Hormone replacement therapy; Z79.899 Other long term (current) drug therapy
CPT/HCPCS: 36415; 80048; 80053; 81001; 82607; 82746; 83735; 83880; 84443; 84484; 85025; 93005; 99285; J0616; J1160; J7120

== ENCOUNTER → 2025-08-22 03:19 | Outpatient (BNV) | payer MEDICARE, BC, SELFPAY | PROVIDERS: Admitting Provider Internal Medicine; Emergency Provider Emergency Medicine; Visit Provider Internal Medicine | DX: I48.91 Unspecified atrial fibrillation (principal) | CPT/HCPCS: 99223; 99239; 99499 ==

== ENCOUNTER → 2025-08-22 03:19 | Outpatient (BNV) | payer MEDICARE, BC, SELFPAY | PROVIDERS: Admitting Provider Internal Medicine; Emergency Provider Emergency Medicine; Visit Provider Internal Medicine | DX: I48.91 Unspecified atrial fibrillation (principal) | CPT/HCPCS: 93010; 99232 ==

== ENCOUNTER → 2025-09-17 09:23 | Outpatient (REF) | payer MEDICARE, BC, SELFPAY ==
--- NOTE | 2025-09-17 09:26 | HM_ITS ---
Conclusion: 1. Patient was monitored for total period of 3 days 2. Baseline was normal sinus rhythm with average heart rate of 55 beats per minute 3. No significant pauses noted but frequent sinus bradycardia noted with 78% of the time heart rate below 60 beats per minute 4. Rare PACs and PVCs noted without sustained arrhythmias 5. Patient marked the counter 1 time with symptoms of tightness in his sternum correlating with sinus rhythm MTDD
== END ==
LOC: HO.CARD 09:23
PROVIDERS: PCP Registered Nurse; Visit Provider Internal Medicine
DX: I48.91 Unspecified atrial fibrillation (principal)
CPT/HCPCS: 93242

== ENCOUNTER → 2025-09-17 09:26 | Outpatient (BNV) | payer MEDICARE, BC, SELFPAY | PROVIDERS: PCP Registered Nurse; Visit Provider Internal Medicine Cardiovascular Disease | DX: I49.1 Atrial premature depolarization (principal); I49.3 Ventricular premature depolarization | CPT/HCPCS: 93244 ==

== ENCOUNTER 2025-10-21 13:44 | Outpatient (AMB) | payer MEDICARE, BC, SELFPAY ==
[2025-10-21 13:48] VITALS: BP 130/68; PULSE 56; BMI 21.1
--- NOTE | 2025-10-21 13:48 | A.OFFVIS_ITS ---
Vital Signs 10/21/25 13:48 Height 5 ft 7 in Weight 134 lb 7.712 oz BMI 21.1 BP 130/68 Blood Pressure Location Lt brachial Position Sitting Pulse 56 Pulse Source Pulse Oximeter Intake Visit Reasons: f/up holter Allergies No Known Allergies Allergy (Verified 08/22/25 00:33) Medication List - Last Reconciled 10/21/25 by Roni Stahl MD acetaminophen (Tylenol Extra Strength) 500 mg PO BID PRN atorvastatin 10 mg PO BEDTIME calcium carbonate 500 mg PO DAILY cholecalciferol (vitamin D3) (Vitamin D3) 50 mcg PO DAILY digoxin 125 mcg PO DAILY levothyroxine (Synthroid) 112 mcg PO MOTUWETHFRSA@0600 magnesium 250 mg PO DAILY metoprolol succinate ER 25 mg PO DAILY metronidazole 0.75% 1 appl See Protocol topical DAILY omeprazole 40 mg PO DAILY@0630 prednisone 6 mg PO DAILY HPI Comments Details: Jory returns for follow-up. In the past, she was seen regarding sensations of chest pressure/shortness of breath and palpitations. She underwent a comprehensive workup including echocardiogram, stress test and coronary CTA and was diagnosed with mild coronary disease but not adequate to explain her symptoms. It seems that she was doing okay but she had a recent hospitalization for palpitations and found to be in atrial fibrillation with rapid rate. Started on beta-blockers and Eliquis. She seems to be back to normal sinus rhythm as evidenced on the recent Holter. Otherwise, she states she is feeling better. No further palpitations. She does have some GI related symptoms. [facility] Medical History (Updated 10/21/25 @ 14:50 by Roni Stahl MD) Hyperlipidemia PMR (polymyalgia rheumatica) Hypothyroidism Essential hypertension Overactive bladder Adult onset hypothyroidism Family History Unknown No problems noted. Social History Household Members: Spouse Housing: House Do you presently have visiting nurse or other home services: No Alcohol intake: current Comment: refusing alarms Patient Tobacco Use Status: Former Tobacco user Second Hand Smoke Exposure: No service: No Review of Systems Const Denies weakness ENT Denies dizziness Card Denies chest pain, Denies chest pain with activity, Denies syncope, Denies rapid heart rate, Denies pedal edema, Denies edema, Denies leg edema, Denies lightheadedness, Denies palpitations, Reports dyspnea, Denies dyspnea on exertion and Denies orthopnea Resp Denies cough, Reports dyspnea and Denies dyspnea on exertion GI Reports abdominal pain, Denies hematochezia, Denies change in stool character and Reports nausea Musc Denies abnormal gait, Denies muscle cramps, Reports muscle weakness, Denies numbness, Denies radiating pain into limb and Denies tingling Neuro Denies abnormal gait, Denies dizziness, Denies syncope, Denies numbness, Denies tingling and Denies weakness Endo Denies palpitations Physical Exam Vital Signs: Last Vital Signs Pulse 56 10/21/25 13:48 BP 130/68 10/21/25 13:48 BMI result Body Mass Index 21.1 Const General: comfortable and no acute distress Orientation/consciousness: patient oriented x3 HEENT Other: Unremarkable Head: Yes normal to inspection Neck Neck: Yes normal visual inspection Chest Chest palpation & inspection: normal inspection of the chest Resp Auscultation: clear to auscultation bilaterally Cardio Palpation: normal PMI Heart sounds: S1 normal heart sound present, S2 normal heart sound present, no gallops, no murmurs and no rubs GI Palpation (GI): Soft to palpation Back/Spine/Pelvis Other: unremarkable Skin General skin exam: no rashes or lesions noted Neuro General: patient oriented x3 Extrem General: Yes normal to inspection Psych Mental Status: mental status grossly normal Assessment & Plan Assessment & Plan (1) PAF (paroxysmal atrial fibrillation): Code(s): I48.0 - Paroxysmal atrial fibrillation Category: Medical Plan: In the recent EKG, atrial fibrillation at a rate of 112/Min. In the subsequent Holter monitor post discharge, underlying sinus rhythm with an average rate of 55/Min. Overall, stable paroxysmal atrial fibrillation. She can continue beta-blockers and Eliquis. (2) Atherosclerotic cardiovascular disease: Code(s): I25.10 - Atherosclerotic heart disease of [place]ak coronary artery without angina pectoris Category: Medical Plan: In the coronary CTA, mild coronary disease involving the LAD, circumflex and RCA. Nothing hemodynamically significant. There is mention of possible esophag eal dysmotility due to air-fluid levels. She is already on statins and lipids are reasonable. 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 Plan Discussion Notes I confirmed with the patient the diagnosis of atrial fibrillation and the critical need for anticoagulation with Eliquis to prevent stroke risk. A prescription for Eliquis was sent to the patient's preferred pharmacy. We discussed stopping digoxin, as it is no longer indicated and could be contributing to the patient's gastrointestinal side effects. The patient will continue taking metoprolol. We also reviewed that the cardiac-like symptoms the patient experiences are very common and likely related to the hiatal hernia, noting that they often mimic cardiac events. I advised the patient to be mindful of the increased risk of bleeding from cuts and bruises while on Eliquis. A follow-up visit was scheduled for six months. Patient was informed and verbally consented to the use of an ambient scribe for clinic note documentation during this visit. Medications: New apixaban (Eliquis) 5 mg PO BID 180 tabs 3RF 90 days Discontinued digoxin Discontinued Reason: Doctor's Order 125 mcg PO DAILY 30 tabs 3RF Patient Instructions: - You have an irregular heartbeat called atrial fibrillation. It is very important to take a blood thinner medication to prevent a stroke. - I have sent a prescription for the blood thinner Eliquis to your pharmacy, [facility] in [place]. - Please stop taking your Digoxin medication. It is no longer needed and may be causing your stomach upset. - Continue taking your metoprolol medication as prescribed for your heart. - The symptoms you feel that are similar to a heart attack are likely caused by your hiatal hernia. It is common for this condition to mimic heart symptoms. - Because you are on a blood thinner, be careful to avoid falls, cuts, or bruises as you may bleed more easily. - Please schedule a follow-up appointment in six months. Coding Level of Care Code Est Pt Level 4 (49333) Complex visit Add On G2211 Diagnoses PAF (paroxysmal atrial fibrillation) I48.0 Atherosclerotic cardiovascular disease I25.10
--- OUTSIDE RECORDS SUMMARY | 2025-10-21 16:27 | XMS_ITS | Clinical Summary ---
Author Organization [facility] Address [address] [place] [id number] Phone Care Team Providers Care It Quality Assurance Analyst Name Role Phone Leonid Wallace NP Primary Care Provider [phone] Allergies No known active allergies Medications atorvastatin [...] 01/24/2024 11:34 AM EST Asymptomatic postmenopausal state CREATININE WITH ESTIMATED GLOMERULAR FILTRATION RATE (EGFR) Routine 10/25/2018 11:12 AM EST Routine general medical examination at a health care facility from Last 3 Months or Most Recently Relevant to Health Maintenance Results * ENDOSCOPY, COLON (02/07/2024 6:41 AM EDT) Narrative Transcriptions Federico Nolen MD - 02/07/2024 6:41 AM EDT [facility] Patient Name: Jory Augustin Attending MD:: FEDERICO NOLEN MD, Procedure Date: 02/07/2024 6:41 AM Date of : 1950 Age: 73 Admit Type: Outpatient Gender: Female Room: [facility] Referring MD: LEONID WALLACE NP Exam Type: [...] bowel preparation was evaluated using the BBPS ([place] Bowel Preparation Scale) with scores of:Right Colon [...] congenital malformations of intestine CPT copyright 2021 [employer]. All rights reserved. The codes documented in this report are preliminary and upon director independent reviewmay be revised to meet current compliance requirements. Procedure Date: 02/07/2024 6:41:[address] [place] [id number] [place] Leonid Wallace NP GI PROCEDURE [...] originally createdby Landry Cr. us Leonid Wallace ACTIVITIES VOLUNTEER IMG BD BONE DENSITY DEXA Final Result * Creatinine/eGFR (10/25/2018 11:12 AM EST) CREATININE 0.80 0.5 - 1.5 mg/dL [facility] EGFR 76 >59 mL/min/1.7 3m2 [facility] Comment:If patient is black, multiply result by 1.159. Estimated glomerular filtration rate calculated using the CKD-EPI equation. Blood 10/25/2018 11:1 2 AM EST 10/25/2018 11:16 AM EST us Luigi Garcias MD LAB BLOOD BKR ORDERABLES Cinthya winslow Result [facility] [address] [place] [address] from Last 3 Months or Most Recently Relevant to Health Maintenance Insurance [employer] FEDERAL MEDICARE PART A & B [employer] FEDERAL MEDICARE PART A & B [facility] Address: [facility] [address] [place] [address] MEDICARE PART A & B [facility] MEDICARE PART A & B [facility] MEDICARE PART A & B [facility] FEDERAL MEDICARE PART A & B [facility] FEDERAL MEDICARE PART A & B [facility] Address: [facility] [id number] [place] [address] MEDICARE PART A & B [facility] MEDICARE PART A & B Care Teams It Quality Assurance Analyst Relationship Specialty Start Date End Date Leonid Wallace NP [address] [place] [address] PCP - General Family Medicine 04/05/20 Additional Source Comments The information contained in this document represents components of the legal health record. It is not the complete legal health record.[facility]
--- OUTSIDE RECORDS SUMMARY | 2025-10-21 16:27 | XMS_ITS | Encounter Summary ---
Author Organization [facility] Address [address] [place] [address] Phone Care Team Providers Care Global Clinical Leader Name Role Phone Shaun Lanza MD Primary Care Provider [phone] Jessica Reyna NP Primary Care Provider [phone] Reason for Referral * MRI/CAT Scan - Closed Specialty Diagnoses / Procedures Referred By Brayden zamarripa Referred To Contact Radiology Diagnoses History of weakness of extremity Procedures MRI Cervical Spine Keny Villagran DO Phone: tel: fax: mailto:[email or web address] Referral ID Status Reason Start Date Expiration Date Visits Re quested Visits Authorized [id number] Closed 02/20/2018 02/20/2019 1 1 * MRI/CAT Scan - Closed Specialty Diagnoses / Procedures Referred By Brayden zamarripa Referred To Contact Radiology Diagnoses History of weakness of extremity Procedures MRI Lumbar Spine Keny Villagran DO Phone: tel: fax: mailto:[email or web address] Referral ID Status Reason Start Date Expiration Date Visits Re quested Visits Authorized [id number] Closed 02/20/2018 02/20/2019 1 1 Encounter Details Date Type Department Care Team ([facility] st Contact Info) Description 02/20/2018 Ancillary Orders Virtual Department [address] [place] [address] Keny Villagran, DO [address] [place] [address] [email or web address] History of weakness of extremity Social History [...] made on a clinical basis. POS - [id number] Narrative 03/01/2018 8:20 PM EDT COMPARISON: Lumbar [...] lower lumbar levoscoliosis. Grade 1 spondylolisthesis of [id number] 5 mm and 4 mm retrolisthesis of [...] be made on a clinicalbasis. POS - [id number] us Keny C Villagran DO IMG MR XSPECIALTY Final Resu lt * MRI CERVICAL SPINE (NEURO) FOCUS WITHOUT CONTRAST (03/01/2018 7:45 PM EDT) Anatomical Region Laterality Modality C-spine Magnetic Resonan ce 03/01/2018 7:3 4 PM EDT Impressions 03/01/2018 7:49 PM EDT C4-5 through C6-7 degenerative disc disease and multilevel neural foraminal stenosis. No disc herniation or canal stenosis. POS - [id number] Narrative 03/01/2018 7:49 PM EDT COMPARISON: Cervical [...] disc herniation or canal stenosis. POS - [id number] Keny Alta Villagran DO IMG MR XSPECIALTY Final Resu lt documented in this encounter Visit Diagnoses Diagnosis History of weakness of extremity History of weakness of extremity History of weakness of extremity documented in this encounter Additional Health Concerns Infection Onset Date Last Indicated Resolved Time CoV-Risk Comment:Referred for COVID-19 testing 04/05/2020 04/06/2020 04/19/2020 1:24 AM E DT documented as of this encounter Care Teams Global Clinical Leader Relationship Specialty Start Date End Date Shaun Lanza MD [email or web address] PCP - General 11/22/17 04/04/20 Jessica Reyna NP [address] [place] [address] PCP - General Family Medicine 04/05/20 documented as of this encounter Additional Source Comments The information contained in this document represents components of the legal health record. It is not the complete legal health record.[facility]
--- OUTSIDE RECORDS SUMMARY | 2025-10-21 16:27 | XMS_ITS | Encounter Summary ---
Author Organization [facility] Address [address] [place] [address] [place] [address] Phone Care Team Providers Care Senior Php Developer Name Role Phone Jessica Reyna NP Primary Care Provider [phone] Encounter Details Date Type Department Care Team (Late st Contact Info) Description 02/07/2024 Procedure Pass [facility] Endoscopy Admitting Dept Virtual Department [address] [place] [address] Social History Tobacco Use Types Packs/Day Years [...] on filedocumented in this encounter Care Teams Senior Php Developer Relationship Specialty Start Date End Date Jessica Reyna NP [address] [place] [address] PCP - General Family Medicine 04/05/20 documented as of this encounter Additional Source Comments The information contained in this document represents components of the legal health record. It is not the complete legal health record.[facility]
--- OUTSIDE RECORDS SUMMARY | 2025-10-21 16:27 | XMS_ITS | Encounter Summary ---
Author Organization [facility] Address [address] [place] [address] [place] [address] Phone Care Team Providers Care Medical Technician Name Role Phone Shaun Lanza MD Primary Care Provider [phone] Jessica Reyna NP Primary Care Provider [phone] Encounter Details Date Type Department Care Team (Late st Contact Info) Description 11/29/2017 Ancillary Orders [facility] [address] [place] [address] Keny Villagran, DO [address] [place] [address] [email or web address] Spondylosis of lumbar region without myelopathy or [...] by: Pippa Vidal on 11/29/2017 11:19 AM Narrative 11/29/2017 12:55 [...] documented as of this encounter Care Teams Medical Technician Relationship Specialty Start Date End Date Shaun Lanza MD [email or web address] PCP - General 11/22/17 04/04/20 Jessica Reyna NP [address] [place] [address] PCP - General Family Medicine 04/05/20 documented as of this encounter Additional Source Comments The information contained in this document represents components of the legal health record. It is not the complete legal health record.[facility]
--- OUTSIDE RECORDS SUMMARY | 2025-10-21 16:28 | XMS_ITS | Encounter Summary ---
Author Organization [facility] Address [address] [place] [address] Phone Care Team Providers Care Neurophysiologist Name Role Phone Shaun Lanza MD Primary Care Provider [phone] Jessica Reyna NP Primary Care Provider [phone] Encounter Details Date Type Department Care Team (Latest Contact Info) Description 10/25/2018 Transcribe Orders [facility] Phleb Main [address] [place] [address] Luigi Garcias MD [address] [place] [phone] [email or web address] Routine general medical examination at a health [...] EST) CREATININE 0.80 0.5 - 1.5 mg/dL [facility] EGFR 76 >59 mL/min/1.7 3m2 [facility] Comment:If patient is black, multiply result by 1.159. Estimated glomerular filtration rate calculated using the CKD-EPI equation. Blood 10/25/2018 11:1 2 AM EST 10/25/2018 11:16 AM EST us Luigi Garcias MD LAB BLOOD BKR ORDERABLES Cinthya l Result Performing Organization Address City/[facility]/ZIP Co de Phone Number [address] [address] * BUN (10/25/2018 11:12 AM EST) BUN 12 6 - 19 mg/dL [facility] Blood 10/25/2018 11:1 2 AM EST 10/25/2018 11:16 AM EST Luigi Garcias MD LAB BLOOD BKR ORDERABLES Cinthya l Result Performing Organization Address [facility] Co de Phone Number [address] [address] documented in this encounter Visit Diagnoses Diagnosis Routine general medical examination at a health care facility- Primary documented in this encounter Additional Health Concerns Infection Onset Date Last Indicated Resolved Time CoV-Risk Comment:Referred for COVID-19 testing 04/05/2020 04/06/2020 04/19/2020 1:24 AM E DT documented as of this encounter Care Teams Neurophysiologist Relationship Specialty Start Date End Date Shaun Lanza MD [email or web address] PCP - General 11/22/17 04/04/20 Jessica Reyna NP [address] [place] [address] PCP - General Family Medicine 04/05/20 documented as of this encounter Additional Source Comments The information contained in this document represents components of the legal health record. It is not the complete legal health record.[facility]
--- OUTSIDE RECORDS SUMMARY | 2025-10-21 16:28 | XMS_ITS | Encounter Summary ---
Author Organization [facility] Address [address] [place] [address] [place] [address] Phone Care Team Providers Care Stringer Machine Tender Name Role Phone Jessica Reyna NP Primary Care Provider [phone] Encounter Details Date Type Department Care Team (Latest Contact Info) Description 07/12/2023 Transcribe Orders Virtual Department [address] [place] [address] Jessica Reyna NP [address] [place] [address] Asymptomatic postmenopausal state (Primary Dx) Social History [...] state documented in this encounter Care Teams Stringer Machine Tender Relationship Specialty Start Date End Date Jessica Reyna NP [address] [place] [address] PCP - General Family Medicine 04/05/20 documented as of this encounter Additional Source Comments The information contained in this document represents components of the legal health record. It is not the complete legal health record.[facility]
--- OUTSIDE RECORDS SUMMARY | 2025-10-21 16:28 | XMS_ITS | Encounter Summary ---
Author Organization [facility] Address [address] [place] [address] Phone Care Team Providers Care Ornamental Iron Worker Helper Name Role Phone Jessica Reyna BLOCK FEEDER Primary Care Provider [phone] Encounter Details Date Type Department Care Team (Late st Contact Info) Description 07/12/2021 Transcribe Orders [facility] [address] [facility] [address] [place] [address] Jessica Reyna NP [address] [place] [address] Social History Tobacco Use Types Packs/Day Years [...] on filedocumented in this encounter Care Teams Ornamental Iron Worker Helper Relationship Specialty Start Date End Date Jessica Reyna NP [address] [place] [address] PCP - General Family Medicine 04/05/20 documented as of this encounter Additional Source Comments The information contained in this document represents components of the legal health record. It is not the complete legal health record.[facility]
--- OUTSIDE RECORDS SUMMARY | 2025-10-21 16:28 | XMS_ITS | Encounter Summary ---
Author Organization [facility] Address [address] [place] [address] Phone Care Team Providers Care Manufacturing Worker Name Role Phone Jessica Reyna PASTOR Primary Care Provider [phone] Encounter Details Date Type Department Care Team (Late st Contact Info) Description 02/01/2023 Procedure Pass [facility], [address] [address] Social History Tobacco Use Types Packs/Day Years [...] on filedocumented in this encounter Care Teams Manufacturing Worker Relationship Specialty Start Date End Date Jessica Reyna NP [address] [place] [address] PCP - General Family Medicine 04/05/20 documented as of this encounter Additional Source Comments The information contained in this document represents components of the legal health record. It is not the complete legal health record.[facility]
--- OUTSIDE RECORDS SUMMARY | 2025-10-21 16:28 | XMS_ITS | Encounter Summary ---
Author Organization [facility] Address [address] [place] [address] Phone Care Team Providers Care Operations Consultant Name Role Phone Jessica Reyna NP Primary Care Provider [phone] Reason for Referral * MRI/CAT Scan - Closed Specialty Diagnoses / Procedures Referred By Contac t Referred To Contact Radiology Diagnoses Radiculopathy, thoracolumbar region Procedures MRI Lumbar Spine Keny Villagran DO Phone: tel: fax: mailto:[email or web address] Referral ID Status Reason Start Date Expiration Date Visits Re quested Visits Authorized [id number] Closed 02/01/2023 02/01/2024 1 1 * MRI/CAT Scan - Closed Specialty Diagnoses / Procedures Referred By Contac t Referred To Contact Radiology Diagnoses Radiculopathy, thoracolumbar region Procedures MRI Thoracic Spine Keny Villagran DO Phone: tel: fax: mailto:[email or web address] Referral ID Status Reason Start Date Expiration Date Visits Re quested Visits Authorized [id number] Closed 02/01/2023 02/01/2024 1 1 Encounter Details Date Type Department Care Team (Latest Contact Info) Description 02/01/2023 Transcribe Orders Virtual Department [address] [place] [address] Keny Villagran, DO [address] [place] [address] [email or web address] Radiculopathy, thoracolumbar region (Primary Dx) Social History [...] region documented in this encounter Care Teams Operations Consultant Relationship Specialty Start Date End Date Jessica Reyna NP [address] [place] [address] PCP - General Family Medicine 04/05/20 documented as of this encounter Additional Source Comments The information contained in this document represents components of the legal health record. It is not the complete legal health record.[facility]
--- OUTSIDE RECORDS SUMMARY | 2025-10-21 16:28 | XMS_ITS | Encounter Summary ---
Author Organization [facility] Address [address] [place] [address] Phone Care Team Providers Care Machine Ii Trimmer Name Role Phone Jessica Reyna BIG DATA SOFTWARE ENGINEER Primary Care Provider [phone] Encounter Details Date Type Department Care Team (Late st Contact Info) Description 02/01/2023 Procedure Pass [facility], [address] [address] Social History Tobacco Use Types Packs/Day Years [...] on filedocumented in this encounter Care Teams Machine Ii Trimmer Relationship Specialty Start Date End Date Jessica Reyna NP [address] [place] [address] PCP - General Family Medicine 04/05/20 documented as of this encounter Additional Source Comments The information contained in this document represents components of the legal health record. It is not the complete legal health record.[facility]
--- OUTSIDE RECORDS SUMMARY | 2025-10-21 16:28 | XMS_ITS | Encounter Summary ---
Author Organization [facility] Address [address] [place] [address] Phone Care Team Providers Care Assisted Living Care Manager Name Role Phone Shaun Lanza MD Primary Care Provider [phone] Jessica Reyna NP Primary Care Provider [phone] Encounter Details Date Type Department Care Team (Late st Contact Info) Description 02/20/2018 Procedure Pass [facility], [address] [address] Social History Tobacco Use Types Packs/Day Years [...] documented as of this encounter Care Teams Assisted Living Care Manager Relationship Specialty Start Date End Date Shaun Lanza MD PCP - General 11/22/17 04/04/20 Jessica Reyna NP [address] [place] [address] PCP - General Family Medicine 04/05/20 documented as of this encounter Additional Source Comments The information contained in this document represents components of the legal health record. It is not the complete legal health record.[facility]
--- OUTSIDE RECORDS SUMMARY | 2025-10-21 16:28 | XMS_ITS | Encounter Summary ---
Author Organization [facility] Address [address] [place] [address] Phone Care Team Providers Care Pediatric Genetic Counselor Name Role Phone Shaun Lanza MD Primary Care Provider [phone] Jessica Reyna NP Primary Care Provider [phone] Encounter Details Date Type Department Care Team (Late st Contact Info) Description 02/20/2018 Procedure Pass [facility], [address] [address] Social History Tobacco Use Types Packs/Day Years [...] documented as of this encounter Care Teams Pediatric Genetic Counselor Relationship Specialty Start Date End Date Shaun Lanza MD PCP - General 11/22/17 04/04/20 Jessica Reyna NP [address] [place] [address] PCP - General Family Medicine 04/05/20 documented as of this encounter Additional Source Comments The information contained in this document represents components of the legal health record. It is not the complete legal health record.[facility]
== END 2025-10-21 14:17 | disposition home or self-care (01) ==
LOC: HO.HCS 13:45
PROVIDERS: PCP Registered Nurse; Visit Provider Internal Medicine
DX: I48.0 Paroxysmal atrial fibrillation (principal); I25.10 Atherosclerotic heart disease of native coronary artery without angina pectoris
CPT/HCPCS: 99214; G2211

== ENCOUNTER → 2025-10-21 13:44 | Outpatient (BNVA) | payer MEDICARE, BC, SELFPAY | PROVIDERS: PCP Registered Nurse; Visit Provider Internal Medicine | DX: I48.0 Paroxysmal atrial fibrillation (principal); E78.5 Hyperlipidemia, unspecified; E03.9 Hypothyroidism, unspecified; I10 Essential (primary) hypertension; I25.10 Atherosclerotic heart disease of native coronary artery without angina pectoris; Z87.891 Personal history of nicotine dependence | CPT/HCPCS: 99212 ==